=== PATIENT | male | born 1955 | race Hispanic/Latino ===

== ENCOUNTER 2018-07-26 14:35 | Emergency (ER) | payer MEDICARE ==
[2018-07-26 15:17] LABS: BASOPHILS % (AUTO) 0.5 % (0.0-5.0); EOSINOPHILS % (AUTO) 3.1 % (0.0-8.0); HEMATOCRIT 26.6 % (42-54); LYMPHOCYTES % (AUTO) 14.4 % (21.0-51.0); MEAN CORPUSCULAR HEMOGLOBIN 27.9 pg (27.0-33.0); MEAN CORPUSCULAR HGB CONC 32.8 g/dL (32.0-36.0); MEAN CORPUSCULAR VOLUME 85.2 fL (79-99); MONOCYTES % (AUTO) 11.1 % (3.0-13.0); NEUTROPHILS % (AUTO) 70.9 % (40.0-77.0); PLATELET COUNT (AUTO) 80 K/uL (130-400); RED BLOOD CELL COUNT(AUTO) 3.13 MIL/uL (4.50-6.20); RED CELL DISTRIBUTION WIDTH 16.7 % (11.0-15.5); WHITE BLOOD COUNT (AUTO) 4.3 K/uL (4.8-10.8)
[2018-07-26 15:27] LABS: CREATININE 1.2 mg/dL (0.5-1.5); INR 1.12 (0.85-1.15); PARTIAL THROMBOPLASTIN TIME 32.9 SEC (26.3-35.5); POTASSIUM 4.4 mmol/L (3.5-5.1); PROTHROMBIN TIME 11.7 SEC (9.6-11.6)
[2018-07-26 15:31] LABS: ALBUMIN 2.8 g/dL (3.5-5.0); BILIRUBIN,TOTAL 0.8 mg/dL (0.2-1.0); TOTAL PROTEIN, SERUM 7.1 g/dL (6.0-8.3)
== END 2018-07-26 16:37 | disposition home or self-care (01) ==
LOC: EDH 14:35
DX: R18.8 Other ascites (principal); D61.818 Other pancytopenia; K74.69 Other cirrhosis of liver; E11.9 Type 2 diabetes mellitus without complications; R78.5 Finding of other psychotropic drug in blood; I10 Essential (primary) hypertension; E07.9 Disorder of thyroid, unspecified; Z79.899 Other long term (current) drug therapy
CPT/HCPCS: 36415; 74176; 80053; 82150; 83690; 85025; 85610; 85730

== ENCOUNTER → 2018-07-27 | Outpatient (CLI) | payer MEDICARE ==
[~2018-07-27] MED LIST: LIDOCAINE HCL MPF 1% 5ML VIAL ONE
[2018-07-27 10:41] LABS: INR 1.11 (0.85-1.15); PROTHROMBIN TIME 11.6 SEC (9.6-11.6)
[2018-07-27] MEDS: ALBUMIN (HUMAN) 25% 200 ML IV SCH ×2 (13:06→14:41)
[2018-07-27 14:02] LABS: APPEARANCE BODY FLUID CLEAR (CLEAR); BODY FLUID WBC 197 /cu. mm.; COLOR,BODY FLUID YELLOW (LT YELLOW); SPECIMENTYPE,BODY FLUID ASCITES; TOTAL VOLUME,BODY FLUID 5600 mL
[2018-07-27 14:03] LABS: BODY FLUID RBC 332 /cu. mm.
[2018-07-27 14:07] LABS: BF LYMPHOCYTE 30 %; BF MESOTHELIAL 60 %; BF MONOCYTE 5 %
== END | disposition home or self-care (01) ==
LOC: RAH 09:30
PROVIDERS: ATTEND Internal Medicine Hematology & Oncology
DX: R18.8 Other ascites (principal); D64.9 Anemia, unspecified; K74.60 Unspecified cirrhosis of liver; E78.5 Hyperlipidemia, unspecified; E11.9 Type 2 diabetes mellitus without complications; I10 Essential (primary) hypertension; E03.9 Hypothyroidism, unspecified; N28.9 Disorder of kidney and ureter, unspecified; M86.9 Osteomyelitis, unspecified; Z98.890 Other specified postprocedural states; Z79.899 Other long term (current) drug therapy; Z79.84 Long term (current) use of oral hypoglycemic drugs; Z79.4 Long term (current) use of insulin; Z83.3 Family history of diabetes mellitus
CPT/HCPCS: 36415; 49083; 85610; 85730; 87071; 87205; 88108; 88305; 89051; J3490; P9047

== ENCOUNTER → 2018-08-27 | Outpatient (CLI) | payer MEDICARE | END | disposition home or self-care (01) | LOC: RAH 08:59 | PROVIDERS: ATTEND Internal Medicine | DX: K80.20 Calculus of gallbladder without cholecystitis without obstruction (principal); R16.2 Hepatomegaly with splenomegaly, not elsewhere classified; R18.8 Other ascites; I86.8 Varicose veins of other specified sites | CPT/HCPCS: 76700 ==

== ENCOUNTER 2018-09-24 13:54 | Emergency (ER) | payer MEDICARE ==
[2018-09-24 14:48] LABS: BASOPHILS % (AUTO) 0.7 % (0.0-5.0); EOSINOPHILS % (AUTO) 3.3 % (0.0-8.0); LYMPHOCYTES % (AUTO) 14.1 % (21.0-51.0); MEAN CORPUSCULAR HGB CONC 32.9 g/dL (32.0-36.0); MEAN CORPUSCULAR VOLUME 81.9 fL (79-99); MONOCYTES % (AUTO) 9.5 % (3.0-13.0); NEUTROPHILS % (AUTO) 72.4 % (40.0-77.0); PLATELET COUNT (AUTO) 141 K/uL (130-400); RED BLOOD CELL COUNT(AUTO) 3.06 MIL/uL (4.50-6.20); RED CELL DISTRIBUTION WIDTH 16.5 % (11.0-15.5); WHITE BLOOD COUNT (AUTO) 5.4 K/uL (4.8-10.8)
[2018-09-24 15:01] LABS: CREATININE 1.1 mg/dL (0.5-1.5)
[2018-09-24 15:03] LABS: INR 1.13 (0.85-1.15); PARTIAL THROMBOPLASTIN TIME 32.8 SEC (26.3-35.5); PROTHROMBIN TIME 11.8 SEC (9.6-11.6)
[2018-09-24 15:06] LABS: ALBUMIN 2.9 g/dL (3.5-5.0); BILIRUBIN,TOTAL 1.1 mg/dL (0.2-1.0); TOTAL PROTEIN, SERUM 7.5 g/dL (6.0-8.3)
== END 2018-09-24 15:55 | disposition home or self-care (01) ==
LOC: EDH 13:54
DX: R18.8 Other ascites (principal); D53.9 Nutritional anemia, unspecified; K74.60 Unspecified cirrhosis of liver; E07.9 Disorder of thyroid, unspecified; I10 Essential (primary) hypertension; E78.5 Hyperlipidemia, unspecified; E11.9 Type 2 diabetes mellitus without complications; Z79.4 Long term (current) use of insulin
CPT/HCPCS: 36415; 80053; 85025; 85610; 85730; 93005

== ENCOUNTER 2018-09-25 06:53 | Emergency (ER) | payer MEDICARE | END 2018-09-25 07:32 | disposition home or self-care (01) | LOC: EDH 06:53 | DX: R18.8 Other ascites (principal); E78.5 Hyperlipidemia, unspecified; I10 Essential (primary) hypertension; E11.9 Type 2 diabetes mellitus without complications; E07.9 Disorder of thyroid, unspecified; Z79.899 Other long term (current) drug therapy | CPT/HCPCS: 99281 ==

== ENCOUNTER → 2018-10-21 | Outpatient (CLI) | payer MEDICARE ==
[~2018-10-21] MED LIST changes: +LIDOCAINE HCL 1% 20 ML VIAL ONE; -LIDOCAINE HCL MPF 1% 5ML VIAL ONE
== END | disposition home or self-care (01) ==
LOC: RAH 07:50
PROVIDERS: ATTEND Internal Medicine
DX: K70.31 Alcoholic cirrhosis of liver with ascites (principal)
CPT/HCPCS: 49083; A4215

== ENCOUNTER → 2018-11-04 | Outpatient (CLI) | payer MEDICARE ==
[~2018-11-04] MED LIST changes: +ALBUMIN (HUMAN) 25% 200 ML IV SCH
[2018-11-04 08:13] LABS: BASOPHILS % (AUTO) 0.7 % (0.0-5.0); EOSINOPHILS % (AUTO) 2.5 % (0.0-8.0); HEMATOCRIT 28.5 % (42-54); MEAN CORPUSCULAR HEMOGLOBIN 26.1 pg (27.0-33.0); MEAN CORPUSCULAR HGB CONC 32.8 g/dL (32.0-36.0); MEAN CORPUSCULAR VOLUME 79.5 fL (79-99); MONOCYTES % (AUTO) 10.4 % (3.0-13.0); NEUTROPHILS % (AUTO) 73.4 % (40.0-77.0); PLATELET COUNT (AUTO) 113 K/uL (130-400); RED BLOOD CELL COUNT(AUTO) 3.59 MIL/uL (4.50-6.20); RED CELL DISTRIBUTION WIDTH 17.4 % (11.0-15.5); WHITE BLOOD COUNT (AUTO) 4.9 K/uL (4.8-10.8)
[2018-11-04 08:25] LABS: INR 1.13 (0.85-1.15); PROTHROMBIN TIME 11.8 SEC (9.6-11.6)
--- NOTE | 2018-11-04 11:00 | NUR ---
U/S GD PARACENTESIS PROCEDURE PERFORMED BY DR Mesfin SOOD. PUNCTURE SITE RLQ AND PATIENT TOLERATED PROCEDURE WELL. TOTAL REMOVED 10.5 LITERS OF CLOUDY YELLOW FLUID. ALBUMIN 25% 50 GRAMS IV GIVEN DURING PROCEDURE. SPECIMEN SENT TO LAB. END OF PROCEDURE AT 1030. CATHETER REMOVED AND DRESSING APPLIED. NO BLEEDING NOTED. DISCHARGE INSTRUCTIONS GIVEN TO PATIENT AND VERBALIZED UNDERSTANDING. DISCHARGED VIA AMBULATION AT 1100. AAO X3 WITH NO C/O PAIN.
[2018-11-04 17:31] LABS: SPECIMENTYPE,BODY FLUID ASCITES
[2018-11-04 17:32] LABS: APPEARANCE BODY FLUID SLIGHTLY CLOUDY (CLEAR); BODY FLUID RBC 345 /cu. mm.; BODY FLUID WBC 75 /cu. mm.; COLOR,BODY FLUID YELLOW (LT YELLOW); TOTAL VOLUME,BODY FLUID 10500 mL
[2018-11-04 17:41] LABS: BF LYMPHOCYTE 40 %; BF MESOTHELIAL 3 %; BF MONOCYTE 10 %
== END | disposition home or self-care (01) ==
LOC: RAH 07:34
PROVIDERS: ATTEND Internal Medicine
DX: K70.31 Alcoholic cirrhosis of liver with ascites (principal); Z79.01 Long term (current) use of anticoagulants
CPT/HCPCS: 36415; 49083; 85025; 85610; 87071; 87077; 87186; 87205; 89051; A4215; P9046

== ENCOUNTER → 2018-12-13 | Outpatient (CLI) | payer MEDICARE ==
[~2018-12-13] MED LIST changes: -LIDOCAINE HCL 1% 20 ML VIAL ONE
--- NOTE | 2018-12-13 11:30 | NUR ---
U/S GD PARACENTESIS PROCEDURE PERFORMED BY DR Mesfin SOOD. PUNCTURE SITE RLQ AND PATIENT TOLERATED PROCEDURE WELL. TOTAL REMOVED 10.5 LITERS OF CLOUDY YELLOW FLUID. ALBUMIN 25% 50 GRAMS IV GIVEN DURING PROCEDURE. SPECIMEN SENT TO LAB. END OF PROCEDURE AT 1055. CATHETER REMOVED AND DRESSING APPLIED. NO BLEEDING NOTED. DISCHARGE INSTRUCTIONS GIVEN TO PATIENT AND VERBALIZED UNDERSTANDING. DISCHARGED VIA AMBULATION AT 1130. AAO X3 WITH NO C/O PAIN.
[2018-12-13 12:40] LABS: APPEARANCE BODY FLUID SLIGHTLY CLOUDY (CLEAR); COLOR,BODY FLUID LT YELLOW (LT YELLOW); SPECIMENTYPE,BODY FLUID ASCITES; TOTAL VOLUME,BODY FLUID 10500 mL
[2018-12-13 12:41] LABS: BODY FLUID RBC 137 /cu. mm.; BODY FLUID WBC 128 /cu. mm.
[2018-12-13 13:38] LABS: BF LYMPHOCYTE 27 %; BF MESOTHELIAL 56 %
== END | disposition home or self-care (01) ==
LOC: RAH 09:40
PROVIDERS: ATTEND Internal Medicine Hematology & Oncology
DX: K70.31 Alcoholic cirrhosis of liver with ascites (principal)
CPT/HCPCS: 49083; 87071; 87205; 89051; 96365; A4215; P9046

== ENCOUNTER → 2018-12-28 | Outpatient (CLI) | payer MEDICARE ==
[~2018-12-28] MED LIST changes: +ALBUMIN (HUMAN) 25% 100 ML IV ONE; -ALBUMIN (HUMAN) 25% 200 ML IV SCH; +LIDOCAINE HCL 1% 20 ML VIAL ONE
[2018-12-28 08:44] LABS: INR 1.12 (0.85-1.15); PROTHROMBIN TIME 11.7 SEC (9.6-11.6)
--- NOTE | 2018-12-28 10:02 | NUR ---
ALBUMIN PROTOCOL TOTAL REMOVED 12.2 LITERS OF CLOUDY YELLOW FLUID. PATIENT MET CRITERIA AND ALBUMIN 25% 50 GRAMS IV GIVEN POST PARACENTESIS.
== END | disposition home or self-care (01) ==
LOC: RAH 07:11
PROVIDERS: ATTEND Internal Medicine Hematology & Oncology
DX: K70.31 Alcoholic cirrhosis of liver with ascites (principal)
CPT/HCPCS: 36415; 49083; 82140; 85610; A4215; P9046 ×2

== ENCOUNTER → 2019-01-11 | Outpatient (CLI) | payer MEDICARE ==
[~2019-01-11] MED LIST changes: -ALBUMIN (HUMAN) 25% 100 ML IV ONE; +ALBUMIN (HUMAN) 25% 200 ML IV SCH; -LIDOCAINE HCL 1% 20 ML VIAL ONE
[2019-01-11 09:52] LABS: INR 1.14 (0.85-1.15); PARTIAL THROMBOPLASTIN TIME 32.8 SEC (26.3-35.5); PROTHROMBIN TIME 11.9 SEC (9.6-11.6)
--- NOTE | 2019-01-11 10:10 | NUR ---
U/S GD PARACENTESIS PROCEDURE PERFORMED BY DR CARTER. PUNCTURE SITE RIGHT SIDE ABDOMEN AND PATIENT TOLERATED PROCEDURE WELL. TOTAL REMOVED 10.0 LITERS OF CLOUDY YELLOW FLUID. END OF PROCEDURE AT 1040. CATHETER REMOVED AND DRESSING APPLIED. NO BLEEDING NOTED. SPECIMEN SENT TO LAB. ALBUMIN 25 % 50 GRAMS GIVEN IV PER MD ORDERS. DISCHARGE INSTRUCTIONS GIVEN TO PATIENT AND VERBALIZED UNDERSTANDING. DISCHARGED AMBULATORY, STABLE, AAO X3 WITH NO C/O PAIN.
[2019-01-11 17:50] LABS: SPECIMENTYPE,BODY FLUID ASCITES
[2019-01-11 17:51] LABS: APPEARANCE BODY FLUID SLIGHTLY CLOUDY (CLEAR); COLOR,BODY FLUID YELLOW (LT YELLOW)
[2019-01-11 17:53] LABS: BODY FLUID RBC 100 /cu. mm.; BODY FLUID WBC 93 /cu. mm.
[2019-01-11 17:56] LABS: TOTAL VOLUME,BODY FLUID 10000 mL
[2019-01-11 18:08] LABS: BF LYMPHOCYTE 14 %; BF MONOCYTE 30 %
== END | disposition home or self-care (01) ==
LOC: RAH 08:57
PROVIDERS: ATTEND Internal Medicine Hematology & Oncology
DX: K70.31 Alcoholic cirrhosis of liver with ascites (principal); Z79.899 Other long term (current) drug therapy; Z83.3 Family history of diabetes mellitus; I50.9 Heart failure, unspecified; E11.9 Type 2 diabetes mellitus without complications; I10 Essential (primary) hypertension; I25.10 Atherosclerotic heart disease of native coronary artery without angina pectoris; K21.9 Gastro-esophageal reflux disease without esophagitis; M86.9 Osteomyelitis, unspecified; Z98.890 Other specified postprocedural states; Z79.4 Long term (current) use of insulin; Z79.84 Long term (current) use of oral hypoglycemic drugs
CPT/HCPCS: 36415; 49083; 85610; 85730; 87071; 87205; 89051; 96365; A4215; P9046

== ENCOUNTER 2019-01-20 11:53 | Emergency (ER) | payer MEDICARE ==
[2019-01-20 12:28] LABS: BASOPHILS % (AUTO) 0.1 % (0.0-5.0); EOSINOPHILS % (AUTO) 1.8 % (0.0-8.0); HEMATOCRIT 29.9 % (42-54); LYMPHOCYTES % (AUTO) 12.8 % (21.0-51.0); MEAN CORPUSCULAR HEMOGLOBIN 23.7 pg (27.0-33.0); MONOCYTES % (AUTO) 8.5 % (3.0-13.0); NEUTROPHILS % (AUTO) 76.8 % (40.0-77.0); PLATELET COUNT (AUTO) 126 K/uL (130-400); RED BLOOD CELL COUNT(AUTO) 4.03 MIL/uL (4.50-6.20); RED CELL DISTRIBUTION WIDTH 20.9 % (11.0-15.5)
[2019-01-20 12:37] LABS: POTASSIUM 4.6 mmol/L (3.5-5.1)
[2019-01-20 12:42] LABS: ALBUMIN 3.1 g/dL (3.5-5.0); BILIRUBIN,TOTAL 1.9 mg/dL (0.2-1.0); TOTAL PROTEIN, SERUM 7.4 g/dL (6.0-8.3)
[2019-01-20 13:08] LABS: AMMONIA 28 umol/L (11-32); AMYLASE 61 U/L (25-115); LIPASE 254 U/L (114-286)
[2019-01-20 13:18] LABS: INR 1.05 (0.85-1.15); PARTIAL THROMBOPLASTIN TIME 28.6 SEC (26.3-35.5)
[2019-01-20 13:29] LABS: APPEARANCE,URINE Clear (CLEAR); BILIRUBIN,URINE Negative (NEGATIVE); COLOR,URINE Yellow (YELLOW); GLUCOSE, URINE (UA) Negative (NEGATIVE); KETONES,URINE Negative (NEGATIVE); LEUKOCYTE ESTERASE ,URINE Negative (NEGATIVE); NITRATE,URINE Negative (NEGATIVE); OCCULT BLOOD,URINE Negative (NEGATIVE); PROTEIN,URINE Negative (NEGATIVE)
[2019-01-20] MEDS ORDERED: LIDOCAINE HCL 1% 20 ML VIAL ONE (14:38)
[2019-01-20] MEDS ORDERED: ALBUMIN (HUMAN) 25% 200 ML IV ONE (14:39)
--- NOTE | 2019-01-20 15:31 | NUR ---
U/S GD PARACENTESIS PROCEDURE PERFORMED BY DR Mesfin SOOD. PUNCTURE SITE RLQ AND PATIENT TOLERATED PROCEDURE WELL. TOTAL REMOVED 10.8 LITERS OF CLEAR YELLOW FLUID. END OF PROCEDURE AT 1510. CATHETER REMOVED AND DRESSING APPLIED. NO BLEEDING NOTED. REPORT GIVEN TO BLAIRE MYERS AND PATIENT TRANSPORTED TO [facility] VIA STRETCHER AT 1515. AAO X3 WITH NO C/O PAIN. ALBUMIN 25% 50 GRAMS GIVEN PER PROTOCOL.
== END 2019-01-20 16:52 | disposition home or self-care (01) ==
LOC: EDH 11:53
DX: R18.8 Other ascites (principal); R06.00 Dyspnea, unspecified; E11.9 Type 2 diabetes mellitus without complications; E78.5 Hyperlipidemia, unspecified; I10 Essential (primary) hypertension; E07.9 Disorder of thyroid, unspecified
CPT/HCPCS: 36415; 49083; 71045; 80053; 81003; 82140; 82150; 83690; 85025; 85610; 85730; 96365; 99285; A4215; P9046

== ENCOUNTER → 2019-02-02 | Outpatient (CLI) | payer MEDICARE ==
[~2019-02-02] MED LIST changes: +ALBUMIN (HUMAN) 25% 200 ML IV ONE; -ALBUMIN (HUMAN) 25% 200 ML IV SCH; +LIDOCAINE HCL 1% 20 ML VIAL ONE
[2019-02-02 14:52] LABS: INR 1.09 (0.85-1.15); PARTIAL THROMBOPLASTIN TIME 32.7 SEC (26.3-35.5); PROTHROMBIN TIME 11.4 SEC (9.6-11.6)
--- NOTE | 2019-02-02 16:15 | NUR ---
U/S GD PARACENTESIS PROCEDURE PERFORMED BY DR Melani OLIVER. PUNCTURE SITE LLQ AND PATIENT TOLERATED PROCEDURE WELL. TOTAL REMOVED 9.9 LITERS OF CLOUDY YELLOW FLUID. ALBUMIN 25% 50 GRAMS IV GIVEN DURING PROCEDURE. END OF PROCEDURE AT 1545. CATHETER REMOVED AND DRESSING APPLIED. NO BLEEDING NOTED. DISCHARGE INSTRUCTIONS GIVEN TO PATIENT AND VERBALIZED UNDERSTANDING. DISCHARGED VIA AMBULATION AT 1615. AAO X3 WITH NO C/O PAIN.
== END | disposition home or self-care (01) ==
LOC: RAH 14:00
PROVIDERS: ATTEND Internal Medicine Hematology & Oncology
DX: K70.31 Alcoholic cirrhosis of liver with ascites (principal); I25.10 Atherosclerotic heart disease of native coronary artery without angina pectoris; I10 Essential (primary) hypertension; M19.90 Unspecified osteoarthritis, unspecified site; Z98.890 Other specified postprocedural states; Z79.899 Other long term (current) drug therapy; D64.9 Anemia, unspecified
CPT/HCPCS: 36415; 49083; 85610; 85730; 96365; A4215; P9046

== ENCOUNTER → 2019-02-14 | Outpatient (CLI) | payer MEDICARE ==
[~2019-02-14] VITALS: Ht 165.1 cm; Wt 108.9 kg
--- NOTE | 2019-02-14 12:30 | NUR ---
U/S GD PARACENTESIS PROCEDURE PERFORMED BY DR Melani OLIVER. PUNCTURE SITE RLQ AND PATIENT TOLERATED PROCEDURE WELL. TOTAL REMOVED 9.8 LITERS OF CLOUDY YELLOW FLUID. END OF PROCEDURE AT 1200. CATHETER REMOVED AND DRESSING APPLIED. NO BLEEDING NOTED. ALBUMIN 25 % 50 GRAMS GIVEN IV PER PROTOCOL. . DISCHARGE INSTRUCTIONS GIVEN TO PATIENT AND VERBALIZED UNDERSTANDING. DISCHARGED VIA W/C AT 1230. AAO X3 WITH NO C/O PAIN.
== END | disposition home or self-care (01) ==
LOC: RAH 11:01
PROVIDERS: ATTEND Internal Medicine Hematology & Oncology
DX: K70.31 Alcoholic cirrhosis of liver with ascites (principal)
CPT/HCPCS: 49083; 96365; A4215; P9046

== ENCOUNTER → 2019-02-22 | Outpatient (CLI) | payer MEDICARE ==
[~2019-02-22] VITALS: Ht 165.1 cm; Wt 108.9 kg
[~2019-02-22] MED LIST changes: -ALBUMIN (HUMAN) 25% 200 ML IV ONE; +ALBUMIN (HUMAN) 25% 200 ML IV SCH
[2019-02-22 13:17] LABS: INR 1.11 (0.85-1.15); PARTIAL THROMBOPLASTIN TIME 32.7 SEC (26.3-35.5); PROTHROMBIN TIME 11.6 SEC (9.6-11.6)
--- NOTE | 2019-02-22 15:15 | NUR ---
U/S GD PARACENTESIS PROCEDURE PERFORMED BY DR Maxim WILLIS. PUNCTURE SITE RLQ AND PATIENT TOLERATED PROCEDURE WELL. TOTAL REMOVED 10 LITERS OF CLOUDY YELLOW FLUID. ALBUMIN 25% 50 GRAMS IV GIVEN DURING PROCEDURE. END OF PROCEDURE AT 1445. CATHETER REMOVED AND DRESSING APPLIED. NO BLEEDING NOTED. DISCHARGE INSTRUCTIONS GIVEN TO PATIENT AND VERBALIZED UNDERSTANDING. DISCHARGED VIA W/C AT 1515. AAO X3 WITH NO C/O PAIN.
== END | disposition home or self-care (01) ==
LOC: RAH 12:32
PROVIDERS: ATTEND Internal Medicine Hematology & Oncology
DX: K70.31 Alcoholic cirrhosis of liver with ascites (principal); D50.9 Iron deficiency anemia, unspecified
CPT/HCPCS: 36415; 49083; 85610; 85730; 96365; A4215; P9046

== ENCOUNTER → 2019-03-02 | Outpatient (CLI) | payer MEDICARE ==
--- NOTE | 2019-03-02 11:05 | NUR ---
US GUIDED PARACENTESIS PROCEDURE PERFORMED BY DR. CARTER. PUNCTURE SITE RIGHT SIDE ABDOMEN. PATIENT TOLERATED PROCEDURE WELL. TOTAL REMOVED 8.2 LITERS OF CLOUDY YELLOW FLUID. END OF PROCEDURE 1140. CATHETER REMOVED, DRESSING APPLIED. NO BLEEDING NOTED. ALBUMIN 25% 50 GRAMS GIVEN PIV RIGHT WRIST. PT TOLERATED WELL. DISCHARGE INSTRUCTIONS GIVEN TO PATIENT AND VERBALIZED UNDERSTANDING. D/C'D PIV, BANDAID APPLIED. DISCHARGED AMBULATORY @ 1155. AAO X 3. WITH NO C/O PAIN.
[2019-03-02 12:39] LABS: APPEARANCE BODY FLUID CLEAR (CLEAR); COLOR,BODY FLUID YELLOW (LT YELLOW); SPECIMENTYPE,BODY FLUID ASCITES; TOTAL VOLUME,BODY FLUID 8200 mL
[2019-03-02 12:40] LABS: BODY FLUID RBC 274 /cu. mm.; BODY FLUID WBC 225 /cu. mm.
[2019-03-02 12:46] LABS: BF LYMPHOCYTE 13 %; BF MESOTHELIAL 75 %; BF MONOCYTE 7 %
== END | disposition home or self-care (01) ==
LOC: RAH 09:18
PROVIDERS: ATTEND Internal Medicine Hematology & Oncology
DX: K70.31 Alcoholic cirrhosis of liver with ascites (principal); D50.9 Iron deficiency anemia, unspecified
CPT/HCPCS: 49083; 87071; 87205; 89051; 96365; A4215; P9046

== ENCOUNTER → 2019-03-09 | Outpatient (CLI) | payer MEDICARE ==
[~2019-03-09] MED LIST changes: +ALBUMIN (HUMAN) 25% 200 ML IV ONE; -ALBUMIN (HUMAN) 25% 200 ML IV SCH; -LIDOCAINE HCL 1% 20 ML VIAL ONE
--- NOTE | 2019-03-09 10:45 | NUR ---
US GUIDED PARACENTESIS PROCEDURE PERFORMED BY DR. CARTER. PUNCTURE SITE RIGHT LOWER QUADRANT. PATIENT TOLERATED PROCEDURE WELL. TOTAL REMOVED 6.0 LITERS OF CLOUDY YELLOW FLUID. END OF PROCEDURE 1115. CATHETER REMOVED, DRESSING APPLIED. NO BLEEDING NOTED. ALBUMIN 25% 50 GRAMS GIVEN PIV LEFT FOREARM. PT TOLERATED WELL. DISCHARGE INSTRUCTIONS GIVEN TO PATIENT AND VERBALIZED UNDERSTANDING. D/C'D PIV, BANDAID APPLIED. DISCHARGED AMBULATORY @ 1145. AAO X 3. WITH NO C/O PAIN.
[2019-03-09 13:16] LABS: SPECIMENTYPE,BODY FLUID ASCITES
[2019-03-09 13:17] LABS: APPEARANCE BODY FLUID CLEAR (CLEAR); BODY FLUID WBC 208 /cu. mm.; COLOR,BODY FLUID YELLOW (LT YELLOW); TOTAL VOLUME,BODY FLUID 6000 mL
[2019-03-09 13:18] LABS: BODY FLUID RBC 272 /cu. mm.
[2019-03-09 13:24] LABS: BF LYMPHOCYTE 20 %; BF MESOTHELIAL 70 %
== END | disposition home or self-care (01) ==
LOC: RAH 09:32
PROVIDERS: ATTEND Internal Medicine Hematology & Oncology
DX: K70.31 Alcoholic cirrhosis of liver with ascites (principal); M19.90 Unspecified osteoarthritis, unspecified site; K21.9 Gastro-esophageal reflux disease without esophagitis; E11.9 Type 2 diabetes mellitus without complications; E78.5 Hyperlipidemia, unspecified; D64.9 Anemia, unspecified; E03.9 Hypothyroidism, unspecified; I12.9 Hypertensive chronic kidney disease with stage 1 through stage 4 chronic kidney disease, or unspecified chronic kidney disease; E11.22 Type 2 diabetes mellitus with diabetic chronic kidney disease; N18.3 Chronic kidney disease, stage 3 (moderate); Z83.3 Family history of diabetes mellitus
CPT/HCPCS: 49083; 87071; 87205; 89051; 96365; A4215; P9046

== ENCOUNTER → 2019-03-16 | Outpatient (CLI) | payer MEDICARE ==
[~2019-03-16] MED LIST changes: -ALBUMIN (HUMAN) 25% 200 ML IV ONE; +ALBUMIN (HUMAN) 25% 200 ML IV SCH
[2019-03-16 09:57] LABS: INR 1.1 (0.85-1.15); PARTIAL THROMBOPLASTIN TIME 32.7 SEC (26.3-35.5); PROTHROMBIN TIME 11.5 SEC (9.6-11.6)
--- NOTE | 2019-03-16 10:40 | NUR ---
U/S GD PARACENTESIS PROCEDURE PERFORMED BY DR WILLIS. PUNCTURE SITE LLQ AND PATIENT TOLERATED PROCEDURE WELL. TOTAL REMOVED 7.5 LITERS OF CLOUDY YELLOW FLUID. END OF PROCEDURE AT 0925. CATHETER REMOVED AND DRESSING APPLIED. NO BLEEDING NOTED. SPECIMEN SENT TO LAB. ALBUMIN 25 % 50 GRAMS GIVEN IV PER MD ORDERS. DISCHARGE INSTRUCTIONS GIVEN TO PATIENT AND VERBALIZED UNDERSTANDING. DISCHARGED AMBULATORY, STABLE, AAO X3 WITH NO C/O PAIN. Addendum: 03/16/19 at 1133 by HUYEN NATION RN RN U/S GD PARACENTESIS PROCEDURE PERFORMED BY DR WILLIS. PUNCTURE SITE LLQ AND PATIENT TOLERATED PROCEDURE WELL. TOTAL REMOVED 7.5 LITERS OF CLOUDY YELLOW FLUID. END OF PROCEDURE AT 1110. CATHETER REMOVED AND DRESSING APPLIED. NO BLEEDING NOTED. SPECIMEN SENT TO LAB. ALBUMIN 25 % 50 GRAMS GIVEN IV PER MD ORDERS. DISCHARGE INSTRUCTIONS GIVEN TO PATIENT AND VERBALIZED UNDERSTANDING. DISCHARGED AMBULATORY @ 1135, STABLE, AAO X3 WITH NO C/O PAIN.
[2019-03-16 12:48] LABS: APPEARANCE BODY FLUID CLEAR (CLEAR); COLOR,BODY FLUID YELLOW (LT YELLOW); SPECIMENTYPE,BODY FLUID ASCITES
[2019-03-16 12:49] LABS: BODY FLUID RBC 517 /cu. mm.; BODY FLUID WBC 150 /cu. mm.; TOTAL VOLUME,BODY FLUID 7500 mL
[2019-03-16 13:11] LABS: BF LYMPHOCYTE 12 %; BF MESOTHELIAL 75 %; BF MONOCYTE 3 %
== END | disposition home or self-care (01) ==
LOC: RAH 08:45
PROVIDERS: ATTEND Internal Medicine Hematology & Oncology
DX: K70.31 Alcoholic cirrhosis of liver with ascites (principal)
CPT/HCPCS: 36415; 49083; 85610; 85730; 87071; 87205; 89051; 96365; A4215; P9046

== ENCOUNTER → 2019-03-23 | Outpatient (CLI) | payer MEDICARE ==
--- NOTE | 2019-03-23 11:30 | NUR ---
U/S GD PARACENTESIS PROCEDURE PERFORMED BY DR Hany CARTER. PUNCTURE SITE RLQ AND PATIENT TOLERATED PROCEDURE WELL. TOTAL REMOVED 6.7 LITERS OF CLOUDY YELLOW FLUID. ALBUMIN 25% 50 GRAMS IV GIVEN DURING PROCEDURE. END OF PROCEDURE AT 1100. CATHETER REMOVED AND DRESSING APPLIED. NO BLEEDING NOTED. DISCHARGE INSTRUCTIONS GIVEN TO PATIENT AND VERBALIZED UNDERSTANDING. DISCHARGED VIA AMBULATION AT 1130. AAO X3 WITH NO C/O PAIN.
== END | disposition home or self-care (01) ==
LOC: RAH 08:58
PROVIDERS: ATTEND Internal Medicine Hematology & Oncology
DX: K70.31 Alcoholic cirrhosis of liver with ascites (principal)
CPT/HCPCS: 49083; 96365; A4215; P9046

== ENCOUNTER → 2019-03-30 | Outpatient (CLI) | payer MEDICARE ==
[2019-03-30 10:20] LABS: INR 1.09 (0.85-1.15); PARTIAL THROMBOPLASTIN TIME 33.3 SEC (26.3-35.5); PROTHROMBIN TIME 11.4 SEC (9.6-11.6)
--- NOTE | 2019-03-30 10:50 | NUR ---
US GUIDED PARACENTESIS PROCEDURE PERFORMED BY DR. CARTER. PUNCTURE SITE TO THE RIGHT LOWER QUADRANT. PROCEDURE TOLERATED WELL. 7.0 LITERS OF CLOUDY YELLOW COLORED FLUID REMOVED. END OF PROCEDURE AT 1110. CATHETER REMOVED AND DRESSING APPLIED. NO BLEEDING NOTED. ALBUMIN 25% 50 GRAMS IV GIVEN PER PROTOCOL. PATIENT TOLERATED WELL. DISCHARGE INSTRUCTIONS GIVEN TO PATIENT. PT VERBALIZED UNDERSTANDING. PT STABLE, AAO X3. NO C/O PAIN.
[2019-03-30 13:05] LABS: APPEARANCE BODY FLUID CLEAR (CLEAR); BODY FLUID WBC 182 /cu. mm.; COLOR,BODY FLUID YELLOW (LT YELLOW); SPECIMENTYPE,BODY FLUID ASCITES; TOTAL VOLUME,BODY FLUID 7000 mL
[2019-03-30 13:06] LABS: BODY FLUID RBC 292 /cu. mm.
[2019-03-30 13:34] LABS: BF EOSINOPHIL 1 %; BF LYMPHOCYTE 16 %; BF MESOTHELIAL 77 %; BF MONOCYTE 4 %
== END | disposition home or self-care (01) ==
LOC: RAH 09:17
PROVIDERS: ATTEND Internal Medicine Hematology & Oncology
DX: K70.31 Alcoholic cirrhosis of liver with ascites (principal)
CPT/HCPCS: 36415; 49083; 85610; 85730; 87071; 87205; 89051; 96365; A4215; P9046

== ENCOUNTER → 2019-04-05 | Outpatient (CLI) | payer MEDICARE ==
[~2019-04-05] VITALS: Ht 165.1 cm; Wt 108.9 kg
[~2019-04-05] MED LIST changes: +ALBUMIN (HUMAN) 25% 100 ML IV SCH; -ALBUMIN (HUMAN) 25% 200 ML IV SCH
[2019-04-05 09:04] LABS: INR 1.09 (0.85-1.15); PARTIAL THROMBOPLASTIN TIME 33.9 SEC (26.3-35.5); PROTHROMBIN TIME 11.4 SEC (9.6-11.6)
--- NOTE | 2019-04-05 09:40 | NUR ---
US GUIDED PARACENTESIS PROCEDURE PERFORMED BY DR. WILLIS. PUNCTURE SITE TO THE LEFT LOWER QUADRANT. PROCEDURE TOLERATED WELL. 6.5 LITERS OF CLOUDY YELLOW COLORED FLUID REMOVED. END OF PROCEDURE AT 1005. CATHETER REMOVED AND DRESSING APPLIED. NO BLEEDING NOTED. ALBUMIN 25% 25 GRAMS IV GIVEN PER PROTOCOL. PATIENT TOLERATED WELL. DISCHARGE INSTRUCTIONS GIVEN TO PATIENT. PT VERBALIZED UNDERSTANDING. PT STABLE, AAO X3. NO C/O PAIN.
[2019-04-05 13:09] LABS: APPEARANCE BODY FLUID CLEAR (CLEAR); COLOR,BODY FLUID YELLOW (LT YELLOW); SPECIMENTYPE,BODY FLUID ASCITES
[2019-04-05 13:11] LABS: BODY FLUID WBC 184 /cu. mm.
[2019-04-05 13:13] LABS: BODY FLUID RBC 298 /cu. mm.
[2019-04-05 13:20] LABS: BF LYMPHOCYTE 19 %; BF MESOTHELIAL 58 %; BF MONOCYTE 11 %
[2019-04-05 13:24] LABS: TOTAL VOLUME,BODY FLUID 6500 mL
== END ==
LOC: RAH 08:27
PROVIDERS: ATTEND Internal Medicine Hematology & Oncology
DX: K70.31 Alcoholic cirrhosis of liver with ascites (principal); D50.9 Iron deficiency anemia, unspecified; Z79.01 Long term (current) use of anticoagulants
CPT/HCPCS: 36415; 49083; 85610; 85730; 87071; 87205; 89051; 96365; A4215; P9046

== ENCOUNTER → 2019-04-13 | Outpatient (CLI) | payer MEDICARE ==
[~2019-04-13] VITALS: Ht 165.1 cm; Wt 108.9 kg
[~2019-04-13] MED LIST changes: -ALBUMIN (HUMAN) 25% 100 ML IV SCH; +ALBUMIN (HUMAN) 25% 200 ML IV PRN
--- NOTE | 2019-04-13 11:10 | NUR ---
US GUIDED PARACENTESIS PROCEDURE PERFORMED BY DR. OLIVER. PUNCTURE SITE TO THE RIGHT LOWER QUADRANT. PROCEDURE TOLERATED WELL. 8.5 LITERS OF CLOUDY YELLOW COLORED FLUID REMOVED. END OF PROCEDURE AT 1140. CATHETER REMOVED AND DRESSING APPLIED. NO BLEEDING NOTED. ALBUMIN 25% 50 GRAMS IV GIVEN PER PROTOCOL. PATIENT TOLERATED WELL. DISCHARGE INSTRUCTIONS GIVEN TO PATIENT. PT VERBALIZED UNDERSTANDING. PT STABLE, AAO X3. NO C/O PAIN.
[2019-04-13 12:40] LABS: APPEARANCE BODY FLUID CLEAR (CLEAR); COLOR,BODY FLUID YELLOW (LT YELLOW); SPECIMENTYPE,BODY FLUID ASCITES; TOTAL VOLUME,BODY FLUID 8500 mL
[2019-04-13 12:41] LABS: BODY FLUID WBC 124 /cu. mm.
[2019-04-13 12:44] LABS: BODY FLUID RBC 212 /cu. mm.
[2019-04-13 13:01] LABS: BF LYMPHOCYTE 22 %; BF MESOTHELIAL 56 %; BF MONOCYTE 8 %
== END | disposition home or self-care (01) ==
LOC: RAH 08:25
PROVIDERS: ATTEND Internal Medicine Hematology & Oncology
DX: K70.31 Alcoholic cirrhosis of liver with ascites (principal)
CPT/HCPCS: 49083; 87071; 87205; 89051; 96365; A4215

== ENCOUNTER → 2019-04-20 | Outpatient (CLI) | payer MEDICARE ==
--- NOTE | 2019-04-20 10:00 | NUR ---
US GUIDED PARACENTESIS PROCEDURE PERFORMED BY DR. OLIVER. PUNCTURE SITE TO THE RIGHT LOWER QUADRANT. PROCEDURE TOLERATED WELL. 8.5 LITERS OF CLOUDY YELLOW COLORED FLUID REMOVED. END OF PROCEDURE AT 1040. CATHETER REMOVED AND DRESSING APPLIED. NO BLEEDING NOTED. ALBUMIN 25% 50 GRAMS IV GIVEN PER PROTOCOL. PATIENT TOLERATED WELL. DISCHARGE INSTRUCTIONS GIVEN TO PATIENT. PT VERBALIZED UNDERSTANDING. PT STABLE, AAO X3. NO C/O PAIN.
[2019-04-20 13:06] LABS: SPECIMENTYPE,BODY FLUID ASCITES
[2019-04-20 13:07] LABS: APPEARANCE BODY FLUID CLEAR (CLEAR); COLOR,BODY FLUID YELLOW (LT YELLOW)
[2019-04-20 13:08] LABS: BODY FLUID RBC 443 /cu. mm.; BODY FLUID WBC 137 /cu. mm.; TOTAL VOLUME,BODY FLUID 8500 mL
[2019-04-20 13:15] LABS: BF EOSINOPHIL 1 %; BF LYMPHOCYTE 10 %; BF MESOTHELIAL 81 %; BF MONOCYTE 6 %
== END | disposition home or self-care (01) ==
LOC: RAH 08:37
PROVIDERS: ATTEND Internal Medicine Hematology & Oncology
DX: K70.31 Alcoholic cirrhosis of liver with ascites (principal); D50.9 Iron deficiency anemia, unspecified
CPT/HCPCS: 49083; 87071; 87205; 89051; 96365; A4215

== ENCOUNTER → 2019-04-27 | Outpatient (CLI) | payer MEDICARE ==
[~2019-04-27] MED LIST changes: -ALBUMIN (HUMAN) 25% 200 ML IV PRN; +ALBUMIN (HUMAN) 25% 200 ML IV SCH
--- NOTE | 2019-04-27 13:20 | NUR ---
US GUIDED PARACENTESIS PROCEDURE PERFORMED BY DR. CARTER. PUNCTURE SITE TO THE RIGHT LOWER QUADRANT. PROCEDURE TOLERATED WELL. 10.0 LITERS OF CLOUDY YELLOW COLORED ASCITES FLUID REMOVED. END OF PROCEDURE AT 1355. CATHETER REMOVED AND DRESSING APPLIED. NO BLEEDING NOTED. ALBUMIN 25% 50 GRAMS GIVEN IV. PATIENT TOLERATED WELL. DISCHARGE INSTRUCTIONS GIVEN TO PATIENT. PT VERBALIZED UNDERSTANDING. PT STABLE, AAO X3. NO C/O PAIN.
[2019-04-27 17:32] LABS: APPEARANCE BODY FLUID SLIGHTLY CLOUDY (CLEAR); COLOR,BODY FLUID YELLOW (LT YELLOW); SPECIMENTYPE,BODY FLUID ASCITES; TOTAL VOLUME,BODY FLUID 10000 mL
[2019-04-27 17:33] LABS: BODY FLUID RBC 180 /cu. mm.; BODY FLUID WBC 72 /cu. mm.
[2019-04-27 17:56] LABS: BF LYMPHOCYTE 38 %; BF MESOTHELIAL 6 %
== END ==
LOC: RAH 11:00
PROVIDERS: ATTEND Internal Medicine Hematology & Oncology
DX: K70.31 Alcoholic cirrhosis of liver with ascites (principal); D50.9 Iron deficiency anemia, unspecified
CPT/HCPCS: 49083; 87071; 87205; 89051; 96365; A4215; P9046; 87077; 87186

== ENCOUNTER → 2019-05-03 | Outpatient (CLI) | payer MEDICARE ==
[~2019-05-03] VITALS: Ht 165.1 cm; Wt 108.9 kg
--- NOTE | 2019-05-03 10:00 | NUR ---
US GUIDED PARACENTESIS PROCEDURE PERFORMED BY DR. GARCIA. PUNCTURE SITE TO THE RIGHT UPPER QUADRANT. PROCEDURE TOLERATED WELL. 8.6 LITERS OF CLOUDY YELLOW COLORED ASCITES FLUID REMOVED. END OF PROCEDURE AT 1055. CATHETER REMOVED AND DRESSING APPLIED. NO BLEEDING NOTED. ALBUMIN 25% 50 GRAMS GIVEN IV. PATIENT TOLERATED WELL. DISCHARGE INSTRUCTIONS GIVEN TO PATIENT. PT VERBALIZED UNDERSTANDING. PT STABLE, AAO X3. NO C/O PAIN.
[2019-05-03 19:16] LABS: APPEARANCE BODY FLUID CLEAR (CLEAR); COLOR,BODY FLUID LT YELLOW (LT YELLOW); SPECIMENTYPE,BODY FLUID ASCITES; TOTAL VOLUME,BODY FLUID 8600 mL
[2019-05-03 19:17] LABS: BODY FLUID RBC 150 /cu. mm.; BODY FLUID WBC 117 /cu. mm.
[2019-05-03 19:37] LABS: BF LYMPHOCYTE 24 %; BF MESOTHELIAL 60 %
== END | disposition home or self-care (01) ==
LOC: RAH 09:16
PROVIDERS: ATTEND Internal Medicine Hematology & Oncology
DX: K70.31 Alcoholic cirrhosis of liver with ascites (principal)
CPT/HCPCS: 49083; 87071; 87205; 89051; 96365; A4215; P9046

== ENCOUNTER → 2019-05-10 | Outpatient (CLI) | payer MEDICARE ==
--- NOTE | 2019-05-10 10:40 | NUR ---
U/S GD PARACENTESIS PROCEDURE PERFORMED BY DR WILLIS. PUNCTURE SITE LEFT UPPER QUADRANT AND PATIENT TOLERATED PROCEDURE WELL. TOTAL REMOVED 8.0 LITERS OF CLOUDY YELLOW. SPECIMEN SENT TO LAB. END OF PROCEDURE AT 1125. CATHETER REMOVED AND DRESSING APPLIED. ALBUMIN 25% 50 GRAMS GIVEN IV PER PROTOCOL NO BLEEDING NOTED. DISCHARGE INSTRUCTIONS GIVEN TO PATIENT AND VERBALIZED UNDERSTANDING. DISCHARGED VIA AMBULATION AT 1045. STABLE, AAO X3 WITH NO C/O PAIN.
[2019-05-10 13:42] LABS: APPEARANCE BODY FLUID CLOUDY (CLEAR); COLOR,BODY FLUID YELLOW (LT YELLOW); SPECIMENTYPE,BODY FLUID ASCITES; TOTAL VOLUME,BODY FLUID 8000 mL
[2019-05-10 13:43] LABS: BODY FLUID RBC 2000 /cu. mm.; BODY FLUID WBC 142 /cu. mm.
[2019-05-10 13:47] LABS: BF LYMPHOCYTE 16 %; BF MESOTHELIAL 63 %
== END | disposition home or self-care (01) ==
LOC: RAH 08:56
PROVIDERS: ATTEND Internal Medicine Hematology & Oncology
DX: R18.8 Other ascites (principal); D50.9 Iron deficiency anemia, unspecified; K70.31 Alcoholic cirrhosis of liver with ascites
CPT/HCPCS: 49083; 87071; 87205; 89051; 96365; A4215; P9046

== ENCOUNTER → 2019-05-18 | Outpatient (CLI) | payer MEDICARE ==
[~2019-05-18] MED LIST changes: +ALBUMIN (HUMAN) 25% 200 ML IV ONE; -ALBUMIN (HUMAN) 25% 200 ML IV SCH
--- NOTE | 2019-05-18 10:25 | NUR ---
U/S GD PARACENTESIS PROCEDURE PERFORMED BY DR CARTER. PUNCTURE SITE LEFT LOWER QUADRANT AND PATIENT TOLERATED PROCEDURE WELL. TOTAL REMOVED 7.7 LITERS OF CLOUDY YELLOW ASCITES FLUID. SPECIMEN SENT TO LAB. END OF PROCEDURE AT 1105. CATHETER REMOVED AND DRESSING APPLIED. ALBUMIN 25% 50 GRAMS GIVEN IV PER PROTOCOL NO BLEEDING NOTED. DISCHARGE INSTRUCTIONS GIVEN TO PATIENT AND VERBALIZED UNDERSTANDING. DISCHARGED VIA AMBULATION AT 1130. PT STABLE, AAO X3 WITH NO C/O PAIN.
[2019-05-18 10:26] LABS: INR 1.1 (0.85-1.15); PARTIAL THROMBOPLASTIN TIME 34.3 SEC (26.3-35.5); PROTHROMBIN TIME 11.5 SEC (9.6-11.6)
[2019-05-18 13:20] LABS: BF LYMPHOCYTE 21 %; BF MESOTHELIAL 61 %; BF MONOCYTE 3 %
[2019-05-18 13:30] LABS: APPEARANCE BODY FLUID CLEAR (CLEAR); BODY FLUID WBC 236 /cu. mm.; COLOR,BODY FLUID YELLOW (LT YELLOW); SPECIMENTYPE,BODY FLUID ASCITES; TOTAL VOLUME,BODY FLUID 7000 mL
[2019-05-18 13:31] LABS: BODY FLUID RBC 333 /cu. mm.
== END ==
LOC: RAH 09:09
PROVIDERS: ATTEND Internal Medicine Hematology & Oncology
DX: K70.31 Alcoholic cirrhosis of liver with ascites (principal)
CPT/HCPCS: 36415; 49083; 85610; 85730; 87071; 87205; 89051; 96365; A4215; P9046

== ENCOUNTER → 2019-05-25 | Outpatient (CLI) | payer MEDICARE ==
[~2019-05-25] MED LIST changes: -ALBUMIN (HUMAN) 25% 200 ML IV ONE; +ALBUMIN (HUMAN) 25% 200 ML IV SCH
--- NOTE | 2019-05-25 11:30 | NUR ---
U/S GD PARACENTESIS PROCEDURE PERFORMED BY DR Mesfin GARCIA. PUNCTURE SITE RLQ AND PATIENT TOLERATED PROCEDURE WELL. TOTAL REMOVED 7.7 LITERS OF CLOUDY YELLOW FLUID. ALBUMIN 25% 50 GRAMS IV GIVEN DURING PROCEDURE. END OF PROCEDURE AT 1100. CATHETER REMOVED AND DRESSING APPLIED. NO BLEEDING NOTED. DISCHARGE INSTRUCTIONS GIVEN TO PATIENT AND VERBALIZED UNDERSTANDING. DISCHARGED VIA AMBULATION AT 1130. AAO X3 WITH NO C/O PAIN.
== END ==
LOC: RAH 09:07
PROVIDERS: ATTEND Internal Medicine Hematology & Oncology
DX: K70.31 Alcoholic cirrhosis of liver with ascites (principal)
CPT/HCPCS: 49083; P9046

== ENCOUNTER → 2019-05-30 | Outpatient (CLI) | payer MEDICARE ==
[~2019-05-30] MED LIST changes: +ALBUMIN (HUMAN) 25% 200 ML IV ONE
--- NOTE | 2019-05-30 14:10 | NUR ---
U/S GD PARACENTESIS PROCEDURE PERFORMED BY DR Radha SOOD. PUNCTURE SITE RIGHT LOWER QUADRANT AND PATIENT TOLERATED PROCEDURE WELL. TOTAL REMOVED 5.0 LITERS OF CLOUDY YELLOW FLUID. ALBUMIN 25% 50 GRAMS IV GIVEN DURING PROCEDURE. SPECIMEN SENT TO LAB. END OF PROCEDURE AT 1445. CATHETER REMOVED AND DRESSING APPLIED. NO BLEEDING NOTED. DISCHARGE INSTRUCTIONS GIVEN TO PATIENT AND VERBALIZED UNDERSTANDING. DISCHARGED VIA AMBULATION AT 1500. AAO X3 WITH NO C/O PAIN.
[2019-05-30 20:00] LABS: SPECIMENTYPE,BODY FLUID ASCITES
[2019-05-30 20:01] LABS: APPEARANCE BODY FLUID CLOUDY (CLEAR); BODY FLUID WBC 154 /cu. mm.; COLOR,BODY FLUID LT YELLOW (LT YELLOW); TOTAL VOLUME,BODY FLUID 5000 mL
[2019-05-30 20:02] LABS: BODY FLUID RBC 393 /cu. mm.
[2019-05-30 21:24] LABS: BF LYMPHOCYTE 25 %; BF MESOTHELIAL 29 %; BF MONOCYTE 15 %; BF OTHER CELLS 1
== END ==
LOC: RAH 10:00
PROVIDERS: ATTEND Internal Medicine Hematology & Oncology
DX: K70.31 Alcoholic cirrhosis of liver with ascites (principal); D50.9 Iron deficiency anemia, unspecified
CPT/HCPCS: 49083; 87071; 87205; 89051; 96365; A4215; P9046

== ENCOUNTER → 2019-06-08 | Outpatient (CLI) | payer MEDICARE ==
[~2019-06-08] VITALS: Ht 165.1 cm; Wt 96.6 kg
[~2019-06-08] MED LIST changes: -ALBUMIN (HUMAN) 25% 200 ML IV SCH
--- NOTE | 2019-06-08 10:50 | NUR ---
U/S GD PARACENTESIS PROCEDURE PERFORMED BY DR SOOD. PUNCTURE SITE RIGHT LOWER QUADRANT AND PATIENT TOLERATED PROCEDURE WELL. TOTAL REMOVED 10 LITERS OF CLOUDY YELLOW FLUID. ALBUMIN 25% 50 GRAMS IV GIVEN DURING PROCEDURE. SPECIMEN SENT TO LAB. END OF PROCEDURE AT 1130. CATHETER REMOVED AND DRESSING APPLIED. NO BLEEDING NOTED. DISCHARGE INSTRUCTIONS GIVEN TO PATIENT AND VERBALIZED UNDERSTANDING. DISCHARGED VIA AMBULATION AT 1150. AAO X3 WITH NO C/O PAIN.
[2019-06-08 15:55] LABS: BF LYMPHOCYTE 23 %; BF MESOTHELIAL 54 %
[2019-06-08 16:03] LABS: APPEARANCE BODY FLUID SLIGHTLY CLOUDY (CLEAR); COLOR,BODY FLUID YELLOW (LT YELLOW); SPECIMENTYPE,BODY FLUID ASCITES
[2019-06-08 16:04] LABS: BODY FLUID WBC 108 /cu. mm.; TOTAL VOLUME,BODY FLUID 10000 mL
[2019-06-08 16:05] LABS: BODY FLUID RBC 225 /cu. mm.
== END ==
LOC: RAH 08:39
PROVIDERS: ATTEND Internal Medicine Hematology & Oncology
DX: K70.31 Alcoholic cirrhosis of liver with ascites (principal)
CPT/HCPCS: 49083; 87071; 87205; 89051; 96365; A4215; P9046

== ENCOUNTER → 2019-06-15 | Outpatient (CLI) | payer MEDICARE ==
[~2019-06-15] MED LIST changes: -ALBUMIN (HUMAN) 25% 200 ML IV ONE; +ALBUMIN (HUMAN) 25% 200 ML IV SCH
--- NOTE | 2019-06-15 08:45 | NUR ---
U/S GD PARACENTESIS PROCEDURE PERFORMED BY DR SOOD. PUNCTURE SITE RIGHT LOWER QUADRANT AND PATIENT TOLERATED PROCEDURE WELL. TOTAL REMOVED 7.5 LITERS OF CLOUDY YELLOW FLUID. ALBUMIN 25% 50 GRAMS IV GIVEN DURING PROCEDURE. SPECIMEN SENT TO LAB. END OF PROCEDURE AT 0915. CATHETER REMOVED AND DRESSING APPLIED. NO BLEEDING NOTED. DISCHARGE INSTRUCTIONS GIVEN TO PATIENT AND VERBALIZED UNDERSTANDING. DISCHARGED VIA AMBULATION AT 0935. AAO X3 WITH NO C/O PAIN.
[2019-06-15 10:56] LABS: APPEARANCE BODY FLUID SLIGHTLY CLOUDY (CLEAR); COLOR,BODY FLUID LT YELLOW (LT YELLOW); SPECIMENTYPE,BODY FLUID ASCITES; TOTAL VOLUME,BODY FLUID 7500 mL
[2019-06-15 10:57] LABS: BODY FLUID RBC 150 /cu. mm.; BODY FLUID WBC 105 /cu. mm.
[2019-06-15 11:02] LABS: BF LYMPHOCYTE 29 %; BF MESOTHELIAL 27 %; BF MONOCYTE 1 %
== END | disposition home or self-care (01) ==
LOC: RAH 07:41
PROVIDERS: ATTEND Internal Medicine Hematology & Oncology
DX: K70.31 Alcoholic cirrhosis of liver with ascites (principal)
CPT/HCPCS: 49083; 87071; 87205; 89051; 96365; A4215; P9046

== ENCOUNTER → 2019-06-22 | Outpatient (CLI) | payer MEDICARE ==
--- NOTE | 2019-06-22 11:15 | NUR ---
U/S GD PARACENTESIS PROCEDURE PERFORMED BY DR CARTER. PUNCTURE SITE RIGHT LOWER QUADRANT AND PATIENT TOLERATED PROCEDURE WELL. TOTAL REMOVED 8.8 LITERS OF CLOUDY YELLOW FLUID. ALBUMIN 25% 50 GRAMS IV GIVEN DURING PROCEDURE. SPECIMEN SENT TO LAB. END OF PROCEDURE AT 1155. CATHETER REMOVED AND DRESSING APPLIED. NO BLEEDING NOTED. DISCHARGE INSTRUCTIONS GIVEN TO PATIENT AND VERBALIZED UNDERSTANDING. DISCHARGED AMBULATORY @ 1225. AAO X3 WITH NO C/O PAIN.
[2019-06-22 11:34] LABS: INR 1.08 (0.85-1.15); PARTIAL THROMBOPLASTIN TIME 22.3 SEC (26.3-35.5); PROTHROMBIN TIME 11.3 SEC (9.6-11.6)
[2019-06-22 14:20] LABS: SPECIMENTYPE,BODY FLUID ASCITES
[2019-06-22 14:21] LABS: APPEARANCE BODY FLUID SLIGHTLY CLOUDY (CLEAR); COLOR,BODY FLUID LT YELLOW (LT YELLOW); TOTAL VOLUME,BODY FLUID 880 mL
[2019-06-22 14:22] LABS: BODY FLUID RBC 220 /cu. mm.; BODY FLUID WBC 83 /cu. mm.
[2019-06-22 17:44] LABS: BF LYMPHOCYTE 37 %; BF MESOTHELIAL 33 %; BF MONOCYTE 5 %
== END ==
LOC: RAH 08:40
PROVIDERS: ATTEND Internal Medicine Hematology & Oncology
DX: K70.31 Alcoholic cirrhosis of liver with ascites (principal); D50.9 Iron deficiency anemia, unspecified
CPT/HCPCS: 36415; 49083; 85610; 85730; 87071; 87205; 89051; 96365; A4215; P9046

== ENCOUNTER → 2019-07-06 | Outpatient (CLI) | payer MEDICARE ==
[~2019-07-06] MED LIST changes: +ALBUMIN (HUMAN) 25% 200 ML IV ONE; -ALBUMIN (HUMAN) 25% 200 ML IV SCH
--- NOTE | 2019-07-06 10:45 | NUR ---
U/S GD PARACENTESIS PROCEDURE PERFORMED BY DR Liang TABARES. PUNCTURE SITE RLQ AND PATIENT TOLERATED PROCEDURE WELL. TOTAL REMOVED 5.7 LITERS OF CLOUDY YELLOW FLUID. ALBUMIN 25% 50 GRAMS IV GIVEN POST PROCEDURE. SPECIMEN SENT TO LAB. END OF PROCEDURE AT 1015. CATHETER REMOVED AND DRESSING APPLIED. NO BLEEDING NOTED. DISCHARGE INSTRUCTIONS GIVEN TO PATIENT AND VERBALIZED UNDERSTANDING. DISCHARGED VIA AMBULATION AT 1045. AAO X3 WITH NO C/O PAIN
[2019-07-06 13:00] LABS: APPEARANCE BODY FLUID SLIGHTLY CLOUDY (CLEAR); COLOR,BODY FLUID YELLOW (LT YELLOW); SPECIMENTYPE,BODY FLUID ASCITES
[2019-07-06 13:01] LABS: TOTAL VOLUME,BODY FLUID 5700 mL
[2019-07-06 13:03] LABS: BODY FLUID RBC 200 /cu. mm.; BODY FLUID WBC 194 /cu. mm.
[2019-07-06 13:12] LABS: BF LYMPHOCYTE 35 %; BF MONOCYTE 18 %
== END ==
LOC: RAH 09:01
PROVIDERS: ATTEND Internal Medicine Hematology & Oncology
DX: K70.31 Alcoholic cirrhosis of liver with ascites (principal)
CPT/HCPCS: 49083; 87071; 87205; 89051; 96365; A4215; P9046

== ENCOUNTER → 2019-07-12 | Outpatient (CLI) | payer MEDICARE ==
--- NOTE | 2019-07-12 08:40 | NUR ---
U/S GD PARACENTESIS PROCEDURE PERFORMED BY DR OLIVER. PUNCTURE SITE LEFT LOWER QUADRANT OF ABDOMEN AND PATIENT TOLERATED PROCEDURE WELL. TOTAL REMOVED 7.0 LITERS OF CLOUDY YELLOW FLUID. ALBUMIN 25% 50 GRAMS IV GIVEN POST PROCEDURE. SPECIMEN SENT TO LAB. END OF PROCEDURE AT 0915. CATHETER REMOVED AND DRESSING APPLIED. NO BLEEDING NOTED. DISCHARGE INSTRUCTIONS GIVEN TO PATIENT AND VERBALIZED UNDERSTANDING. DISCHARGED VIA AMBULATION AT 0940. AAO X3 WITH NO C/O PAIN
[2019-07-12 13:17] LABS: BF LYMPHOCYTE 11 %; BF MESOTHELIAL 69 %; BF MONOCYTE 7 %
[2019-07-12 13:18] LABS: SPECIMENTYPE,BODY FLUID ASCITES
[2019-07-12 13:19] LABS: APPEARANCE BODY FLUID CLEAR (CLEAR); COLOR,BODY FLUID YELLOW (LT YELLOW); TOTAL VOLUME,BODY FLUID 7000 mL
[2019-07-12 13:20] LABS: BODY FLUID RBC 365 /cu. mm.; BODY FLUID WBC 172 /cu. mm.
== END ==
LOC: RAH 07:29
PROVIDERS: ATTEND Internal Medicine Hematology & Oncology
DX: K70.31 Alcoholic cirrhosis of liver with ascites (principal)
CPT/HCPCS: 49083; 87071; 87205; 89051; 96365; P9046

== ENCOUNTER → 2019-07-19 | Outpatient (CLI) | payer MEDICARE ==
[~2019-07-19] MED LIST changes: -ALBUMIN (HUMAN) 25% 200 ML IV ONE; +ALBUMIN (HUMAN) 25% 200 ML IV SCH
--- NOTE | 2019-07-19 08:30 | NUR ---
U/S GD PARACENTESIS PROCEDURE PERFORMED BY DR OLIVER. PUNCTURE SITE RIGHT LOWER QUADRANT OF ABDOMEN AND PATIENT TOLERATED PROCEDURE WELL. TOTAL REMOVED 6.5 LITERS OF CLOUDY YELLOW FLUID. ALBUMIN 25% 50 GRAMS IV GIVEN POST PROCEDURE. SPECIMEN SENT TO LAB. END OF PROCEDURE AT 0905. CATHETER REMOVED AND DRESSING APPLIED. NO BLEEDING NOTED. DISCHARGE INSTRUCTIONS GIVEN TO PATIENT AND VERBALIZED UNDERSTANDING. DISCHARGED VIA AMBULATION AT 0945. AAO X3 WITH NO C/O PAIN
[2019-07-19 13:30] LABS: APPEARANCE BODY FLUID CLEAR (CLEAR); COLOR,BODY FLUID YELLOW (LT YELLOW); SPECIMENTYPE,BODY FLUID ASCITES; TOTAL VOLUME,BODY FLUID 6500 mL
[2019-07-19 13:31] LABS: BODY FLUID RBC 665 /cu. mm.; BODY FLUID WBC 59 /cu. mm.
[2019-07-19 13:38] LABS: BF LYMPHOCYTE 24 %; BF MESOTHELIAL 56 %
== END ==
LOC: RAH 07:25
PROVIDERS: ATTEND Internal Medicine Hematology & Oncology
DX: K70.31 Alcoholic cirrhosis of liver with ascites (principal)
CPT/HCPCS: 49083; 87071; 87205; 89051; 96365; A4215; P9046

== ENCOUNTER → 2019-07-26 | Outpatient (CLI) | payer MEDICARE ==
[~2019-07-26] VITALS: Ht 165.1 cm; Wt 96.6 kg
[~2019-07-26] MED LIST changes: +ALBUMIN (HUMAN) 25% 200 ML IV ONE
[2019-07-26 08:58] LABS: INR 1.09 (0.85-1.15); PARTIAL THROMBOPLASTIN TIME 29.9 SEC (26.3-35.5); PROTHROMBIN TIME 11.4 SEC (9.6-11.6)
--- NOTE | 2019-07-26 09:05 | NUR ---
U/S GD PARACENTESIS PROCEDURE PERFORMED BY DR OLIVER. PUNCTURE SITE RIGHT LOWER QUADRANT OF ABDOMEN AND PATIENT TOLERATED PROCEDURE WELL. TOTAL REMOVED 7.0 LITERS OF CLOUDY YELLOW FLUID. ALBUMIN 25% 50 GRAMS IV GIVEN POST PROCEDURE. SPECIMEN SENT TO LAB. END OF PROCEDURE AT 0935. CATHETER REMOVED AND DRESSING APPLIED. NO BLEEDING NOTED. DISCHARGE INSTRUCTIONS GIVEN TO PATIENT AND VERBALIZED UNDERSTANDING. DISCHARGED VIA AMBULATION AT 1005. AAO X3 WITH NO C/O PAIN
[2019-07-26 13:45] LABS: APPEARANCE BODY FLUID CLEAR (CLEAR); COLOR,BODY FLUID YELLOW (LT YELLOW); SPECIMENTYPE,BODY FLUID ASCITES; TOTAL VOLUME,BODY FLUID 7000 mL
[2019-07-26 13:46] LABS: BODY FLUID RBC 401 /cu. mm.; BODY FLUID WBC 178 /cu. mm.
[2019-07-26 14:41] LABS: BF LYMPHOCYTE 10 %; BF MESOTHELIAL 74 %; BF MONOCYTE 3 %
== END ==
LOC: RAH 07:35
PROVIDERS: ATTEND Internal Medicine Hematology & Oncology
DX: K70.31 Alcoholic cirrhosis of liver with ascites (principal); D50.9 Iron deficiency anemia, unspecified
CPT/HCPCS: 36415; 49083; 85610; 85730; 87071; 87205; 89051; 96365; A4215; P9046

== ENCOUNTER → 2019-08-02 | Outpatient (CLI) | payer MEDICARE ==
[~2019-08-02] MED LIST changes: +ALBUMIN (HUMAN) 25% 100 ML IV SCH; -ALBUMIN (HUMAN) 25% 200 ML IV ONE; -ALBUMIN (HUMAN) 25% 200 ML IV SCH
--- NOTE | 2019-08-02 08:40 | NUR ---
U/S GD PARACENTESIS PROCEDURE PERFORMED BY DR. CARTER. PUNCTURE SITE RIGHT LOWER QUADRANT OF ABDOMEN AND PATIENT TOLERATED PROCEDURE WELL. TOTAL REMOVED 6.3 LITERS OF CLOUDY YELLOW FLUID. ALBUMIN 25% 25 GRAMS IV GIVEN POST PROCEDURE. SPECIMEN SENT TO LAB. END OF PROCEDURE AT 0905. CATHETER REMOVED AND DRESSING APPLIED. NO BLEEDING NOTED. DISCHARGE INSTRUCTIONS GIVEN TO PATIENT AND VERBALIZED UNDERSTANDING. DISCHARGED VIA AMBULATION AT 0930. AAO X3 WITH NO C/O PAIN
[2019-08-02 13:57] LABS: APPEARANCE BODY FLUID SLIGHTLY CLOUDY (CLEAR); COLOR,BODY FLUID LT YELLOW (LT YELLOW); SPECIMENTYPE,BODY FLUID ASCITES
[2019-08-02 13:58] LABS: BODY FLUID WBC 85 /cu. mm.; TOTAL VOLUME,BODY FLUID 6300 mL
[2019-08-02 13:59] LABS: BODY FLUID RBC 560 /cu. mm.
[2019-08-02 14:13] LABS: BF EOSINOPHIL 1 %; BF LYMPHOCYTE 74 %; BF MESOTHELIAL 25 %; BF MONOCYTE 15 %
== END ==
LOC: RAH 07:28
PROVIDERS: ATTEND Internal Medicine Hematology & Oncology
DX: K70.31 Alcoholic cirrhosis of liver with ascites (principal)
CPT/HCPCS: 49083; 87071; 87205; 89051; 96365; A4215; P9046 ×2

== ENCOUNTER → 2019-08-09 | Outpatient (CLI) | payer MEDICARE ==
[~2019-08-09] VITALS: Ht 165.1 cm; Wt 96.6 kg
[~2019-08-09] MED LIST changes: -ALBUMIN (HUMAN) 25% 100 ML IV SCH; +ALBUMIN (HUMAN) 25% 200 ML IV SCH
--- NOTE | 2019-08-09 09:30 | NUR ---
U/S GD PARACENTESIS PROCEDURE PERFORMED BY DR WILLIS. PUNCTURE SITE LEFT LOWER QUADRANT OF ABDOMEN AND PATIENT TOLERATED PROCEDURE WELL. TOTAL REMOVED 6.7 LITERS OF CLOUDY [place] ASCITES FLUID. END OF PROCEDURE AT 0955. CATHETER REMOVED AND DRESSING APPLIED. ALBUMIN 25% 50 GRAMS GIVEN DURING PROCEDURE PER [facility] [place] ALBUMIN PROTOCOL. NO BLEEDING NOTED. DISCHARGE INSTRUCTIONS GIVEN TO PATIENT. PATIENT VERBALIZED UNDERSTANDING. PT STALBE, AAO X3 WITH NO C/O PAIN. SPECIMEN SENT TO LAB.
[2019-08-09 14:07] LABS: APPEARANCE BODY FLUID SLIGHTLY CLOUDY (CLEAR); BODY FLUID WBC 157 /cu. mm.; COLOR,BODY FLUID YELLOW (LT YELLOW); SPECIMENTYPE,BODY FLUID ASCITES; TOTAL VOLUME,BODY FLUID 6700 mL
[2019-08-09 14:08] LABS: BODY FLUID RBC 200 /cu. mm.
[2019-08-09 14:15] LABS: BF LYMPHOCYTE 40 %; BF MONOCYTE 37 %
== END ==
LOC: RAH 07:41
PROVIDERS: ATTEND Internal Medicine Hematology & Oncology
DX: R18.8 Other ascites (principal); K74.60 Unspecified cirrhosis of liver; I25.10 Atherosclerotic heart disease of native coronary artery without angina pectoris; I10 Essential (primary) hypertension; M19.90 Unspecified osteoarthritis, unspecified site; Z98.890 Other specified postprocedural states; Z79.899 Other long term (current) drug therapy
CPT/HCPCS: 49083; 87071; 87205; 89051; 96365; A4215; P9046

== ENCOUNTER → 2019-08-16 | Outpatient (CLI) | payer MEDICARE ==
--- NOTE | 2019-08-16 09:20 | NUR ---
U/S GUIDED PARACENTESIS PROCEDURE PERFORMED BY DR. GARCIA. PUNCTURE SITE RIGHT LOWER QUADRANT OF ABDOMEN AND PATIENT TOLERATED PROCEDURE WELL. TOTAL REMOVED 8.5 LITERS OF CLOUDY YELLOW ASCITES FLUID. END OF PROCEDURE AT 0950. CATHETER REMOVED AND DRESSING APPLIED. ALBUMIN 25% 50 GRAMS GIVEN IV DURING PROCED[place] [facility] [place]. NO BLEEDING NOTED. DISCHARGE INSTRUCTIONS GIVEN TO PATIENT. PATIENT VERBALIZED UNDERSTANDING. PT AMBULATORY, STABLE, AAO X3 WITH NO C/O PAIN. SPECIMEN SENT TO LAB.
[2019-08-16 13:24] LABS: APPEARANCE BODY FLUID SLIGHTLY CLOUDY (CLEAR); COLOR,BODY FLUID LT YELLOW (LT YELLOW); SPECIMENTYPE,BODY FLUID ASCITES; TOTAL VOLUME,BODY FLUID 8500 mL
[2019-08-16 13:26] LABS: BODY FLUID RBC 275 /cu. mm.; BODY FLUID WBC 99 /cu. mm.
[2019-08-16 14:21] LABS: BF LYMPHOCYTE 11 %; BF MESOTHELIAL 44 %; BF MONOCYTE 2 %
== END ==
LOC: RAH 07:46
PROVIDERS: ATTEND Internal Medicine Hematology & Oncology
DX: K70.31 Alcoholic cirrhosis of liver with ascites (principal); I12.9 Hypertensive chronic kidney disease with stage 1 through stage 4 chronic kidney disease, or unspecified chronic kidney disease; E11.22 Type 2 diabetes mellitus with diabetic chronic kidney disease; N18.3 Chronic kidney disease, stage 3 (moderate); D63.1 Anemia in chronic kidney disease; E78.5 Hyperlipidemia, unspecified; K21.9 Gastro-esophageal reflux disease without esophagitis; I25.10 Atherosclerotic heart disease of native coronary artery without angina pectoris; E03.9 Hypothyroidism, unspecified; M86.071 Acute hematogenous osteomyelitis, right ankle and foot; Z98.890 Other specified postprocedural states; Z79.899 Other long term (current) drug therapy; Z83.3 Family history of diabetes mellitus
CPT/HCPCS: 49083; 87071; 87205; 89051; 96365; A4215; P9046

== ENCOUNTER → 2019-08-23 | Outpatient (CLI) | payer MEDICARE ==
[~2019-08-23] VITALS: Ht 165.1 cm; Wt 96.6 kg
[~2019-08-23] MED LIST changes: +ALBUMIN (HUMAN) 25% 200 ML IV ONE
--- NOTE | 2019-08-23 09:30 | NUR ---
U/S GD PARACENTESIS PROCEDURE PERFORMED BY DR Mesfin GARCIA. PUNCTURE SITE RLQ AND PATIENT TOLERATED PROCEDURE WELL. TOTAL REMOVED 7.8 LITERS OF CLOUDY YELLOW FLUID. ALBUMIN 25% 50 GRAMS IV GIVEN DURING PROCEDURE. SPECIMEN SENT TO LAB. END OF PROCEDURE AT 0900. CATHETER REMOVED AND DRESSING APPLIED. NO BLEEDING NOTED. DISCHARGE INSTRUCTIONS GIVEN TO PATIENT AND VERBALIZED UNDERSTANDING. DISCHARGED VIA AMBULATION AT 0930. AAO X3 WITH NO C/O PAIN.
[2019-08-23 12:36] LABS: APPEARANCE BODY FLUID CLEAR (CLEAR); BODY FLUID WBC 117 /cu. mm.; COLOR,BODY FLUID YELLOW (LT YELLOW); SPECIMENTYPE,BODY FLUID ASCITES; TOTAL VOLUME,BODY FLUID 7800 mL
[2019-08-23 12:37] LABS: BODY FLUID RBC 197 /cu. mm.
[2019-08-23 13:30] LABS: BF LYMPHOCYTE 17 %; BF MESOTHELIAL 65 %; BF MONOCYTE 12 %
== END ==
LOC: RAH 07:23
PROVIDERS: ATTEND Internal Medicine Hematology & Oncology
DX: K70.31 Alcoholic cirrhosis of liver with ascites (principal); E78.5 Hyperlipidemia, unspecified; E03.9 Hypothyroidism, unspecified; K21.9 Gastro-esophageal reflux disease without esophagitis; M19.90 Unspecified osteoarthritis, unspecified site; I25.10 Atherosclerotic heart disease of native coronary artery without angina pectoris; I25.9 Chronic ischemic heart disease, unspecified; I12.9 Hypertensive chronic kidney disease with stage 1 through stage 4 chronic kidney disease, or unspecified chronic kidney disease; E11.22 Type 2 diabetes mellitus with diabetic chronic kidney disease; N18.3 Chronic kidney disease, stage 3 (moderate); Z79.899 Other long term (current) drug therapy; Z83.3 Family history of diabetes mellitus; Z89.511 Acquired absence of right leg below knee; Z82.49 Family history of ischemic heart disease and other diseases of the circulatory system
CPT/HCPCS: 49083; 87071; 87205; 89051; 96365; A4215; P9046

== ENCOUNTER → 2019-08-30 | Outpatient (CLI) | payer MEDICARE ==
[~2019-08-30] MED LIST changes: -ALBUMIN (HUMAN) 25% 200 ML IV SCH
[2019-08-30 08:33] LABS: INR 1.12 (0.85-1.15); PARTIAL THROMBOPLASTIN TIME 31.7 SEC (26.3-35.5); PROTHROMBIN TIME 11.7 SEC (9.6-11.6)
--- NOTE | 2019-08-30 09:05 | NUR ---
U/S GD PARACENTESIS PROCEDURE PERFORMED BY DR CARTER. PUNCTURE SITE RIGHT LOWER QUADRANT OF ABDOMEN AND PATIENT TOLERATED PROCEDURE WELL. TOTAL REMOVED 8.2 LITERS OF CLOUDY YELLOW FLUID. END OF PROCEDURE AT 0935. CATHETER REMOVED AND DRESSING APPLIED. NO BLEEDING NOTED. ALBUMIN 25% 50 GRAMS GIVEN DURING PROCEDURE PER [facility] [place] ALBUMIN PROTOCOL. DISCHARGE INSTRUCTIONS GIVEN TO PATIENT. PATIENT VERBALIZED UNDERSTANDING. PT DISCHARGED AMBULATORY, STABLE, AAO X3 WITH NO C/O PAIN. SPECIMEN SENT TO LAB.
[2019-08-30 16:52] LABS: APPEARANCE BODY FLUID CLOUDY (CLEAR); COLOR,BODY FLUID YELLOW (LT YELLOW); SPECIMENTYPE,BODY FLUID ASCITES; TOTAL VOLUME,BODY FLUID 8200 mL
[2019-08-30 16:53] LABS: BODY FLUID RBC 161 /cu. mm.; BODY FLUID WBC 88 /cu. mm.
[2019-08-30 16:55] LABS: BF EOSINOPHIL 2 %; BF LYMPHOCYTE 27 %; BF MESOTHELIAL 41 %; BF MONOCYTE 4 %
== END ==
LOC: RAH 07:17
PROVIDERS: ATTEND Internal Medicine Hematology & Oncology
DX: K70.31 Alcoholic cirrhosis of liver with ascites (principal); E03.9 Hypothyroidism, unspecified; K21.9 Gastro-esophageal reflux disease without esophagitis; M19.90 Unspecified osteoarthritis, unspecified site; I25.10 Atherosclerotic heart disease of native coronary artery without angina pectoris; I12.9 Hypertensive chronic kidney disease with stage 1 through stage 4 chronic kidney disease, or unspecified chronic kidney disease; E11.22 Type 2 diabetes mellitus with diabetic chronic kidney disease; N18.3 Chronic kidney disease, stage 3 (moderate); Z79.899 Other long term (current) drug therapy; Z98.890 Other specified postprocedural states; Z83.3 Family history of diabetes mellitus
CPT/HCPCS: 36415; 49083; 85610; 85730; 87071; 87205; 89051; 96365; A4215; P9046

== ENCOUNTER → 2019-09-06 | Outpatient (CLI) | payer MEDICARE ==
[~2019-09-06] VITALS: Ht 165.1 cm; Wt 96.2 kg
[~2019-09-06] MED LIST changes: -ALBUMIN (HUMAN) 25% 200 ML IV ONE; +ALBUMIN (HUMAN) 25% 200 ML IV SCH
--- NOTE | 2019-09-06 09:20 | NUR ---
U/S GD PARACENTESIS PROCEDURE PERFORMED BY DR CARTER. PUNCTURE SITE LEFT LOWER QUADRANT OF ABDOMEN AND PATIENT TOLERATED PROCEDURE WELL. TOTAL REMOVED 9.7 LITERS OF CLOUDY YELLOW FLUID. END OF PROCEDURE AT 1005. CATHETER REMOVED AND DRESSING APPLIED. NO BLEEDING NOTED, ALBUMIN 25% 50 GRAMS GIVEN DURING PROCEDURE PER [place] ALBUMIN PROTOCOL. DISCHARGE INSTRUCTIONS GIVEN TO PATIENT. PATIENT VERBALIZED UNDERSTANDING. PT DISCHARGED VIA AMBULATION, STABLE, AAO X3 WITH NO C/O PAIN. SPECIMEN SENT TO LAB.
[2019-09-06 18:28] LABS: APPEARANCE BODY FLUID SLIGHTLY CLOUDY (CLEAR); SPECIMENTYPE,BODY FLUID ASCITES
[2019-09-06 18:29] LABS: BODY FLUID RBC 50 /cu. mm.; BODY FLUID WBC 156 /cu. mm.; COLOR,BODY FLUID YELLOW (LT YELLOW); TOTAL VOLUME,BODY FLUID 9700 mL
[2019-09-06 18:32] LABS: BF EOSINOPHIL 6 %; BF LYMPHOCYTE 26 %; BF MONOCYTE 52 %
== END | disposition home or self-care (01) ==
LOC: RAH 08:22
PROVIDERS: ATTEND Internal Medicine Hematology & Oncology
DX: R18.8 Other ascites (principal); E78.5 Hyperlipidemia, unspecified; E11.9 Type 2 diabetes mellitus without complications; I10 Essential (primary) hypertension; K21.9 Gastro-esophageal reflux disease without esophagitis; M19.90 Unspecified osteoarthritis, unspecified site; I25.10 Atherosclerotic heart disease of native coronary artery without angina pectoris; E03.9 Hypothyroidism, unspecified; Z98.890 Other specified postprocedural states; Z79.899 Other long term (current) drug therapy; Z80.8 Family history of malignant neoplasm of other organs or systems
CPT/HCPCS: 49083; 87071; 87205; 89051; 96365; A4215; P9046

== ENCOUNTER → 2019-09-13 | Outpatient (CLI) | payer MEDICARE ==
--- NOTE | 2019-09-13 09:15 | NUR ---
U/S GD PARACENTESIS PROCEDURE PERFORMED BY DR Melani OLIVER. PUNCTURE SITE RIGHT LOWER QUADRANT OF ABDOMEN AND PATIENT TOLERATED PROCEDURE WELL. TOTAL REMOVED 8.2 LITERS OF CLOUDY YELLOW FLUID. END OF PROCEDURE AT 0845. CATHETER REMOVED AND DRESSING APPLIED. NO BLEEDING NOTED, ALBUMIN 25% 50 GRAMS GIVEN DURING PROCEDURE PER [facility] [place] ALBUMIN PROTOCOL. DISCHARGE INSTRUCTIONS GIVEN TO PATIENT. PATIENT VERBALIZED UNDERSTANDING. PT DISCHARGED VIA AMBULATION, STABLE, AAO X3 WITH NO C/O PAIN. SPECIMEN SENT TO LAB.
[2019-09-13 16:54] LABS: SPECIMENTYPE,BODY FLUID ASCITES
[2019-09-13 16:55] LABS: APPEARANCE BODY FLUID CLOUDY (CLEAR); BODY FLUID WBC 61 /cu. mm.; COLOR,BODY FLUID YELLOW (LT YELLOW); TOTAL VOLUME,BODY FLUID 8200 mL
[2019-09-13 16:56] LABS: BODY FLUID RBC 166 /cu. mm.
[2019-09-13 17:01] LABS: BF LYMPHOCYTE 13 %; BF MESOTHELIAL 31 %; BF MONOCYTE 4 %
== END | disposition home or self-care (01) ==
LOC: RAH 07:18
PROVIDERS: ATTEND Internal Medicine Hematology & Oncology
DX: R18.8 Other ascites (principal); I25.10 Atherosclerotic heart disease of native coronary artery without angina pectoris; I12.9 Hypertensive chronic kidney disease with stage 1 through stage 4 chronic kidney disease, or unspecified chronic kidney disease; E11.22 Type 2 diabetes mellitus with diabetic chronic kidney disease; N18.3 Chronic kidney disease, stage 3 (moderate); K21.9 Gastro-esophageal reflux disease without esophagitis; E78.5 Hyperlipidemia, unspecified; E03.9 Hypothyroidism, unspecified; Z79.899 Other long term (current) drug therapy
CPT/HCPCS: 49083; 87071; 87205; 89051; 96365; A4215; P9046

== ENCOUNTER → 2019-09-20 | Outpatient (CLI) | payer MEDICARE ==
[~2019-09-20] MED LIST changes: +ALBUMIN (HUMAN) 25% 200 ML IV ONE; -ALBUMIN (HUMAN) 25% 200 ML IV SCH
--- NOTE | 2019-09-20 08:50 | NUR ---
U/S GD PARACENTESIS PROCEDURE PERFORMED BY DR OLIVER. PUNCTURE SITE RIGHT LOWER QUADRANT OF ABDOMEN AND PATIENT TOLERATED PROCEDURE WELL. TOTAL REMOVED 8.5 LITERS OF CLOUDY YELLOW FLUID. END OF PROCEDURE AT 0930. CATHETER REMOVED AND DRESSING APPLIED. NO BLEEDING NOTED. ALBUMIN 25% 50 GRAMS GIVEN DURING PROCEDURE PER [facility] [place]. DISCHARGE INSTRUCTIONS GIVEN TO PATIENT. PATIENT VERBALIZED UNDERSTANDING. PT DISCHARGED AMBULATORY, STABLE, AAO X3 WITH NO C/O PAIN. SPECIMEN SENT TO LAB.
[2019-09-20 14:12] LABS: APPEARANCE BODY FLUID CLEAR (CLEAR); COLOR,BODY FLUID YELLOW (LT YELLOW); SPECIMENTYPE,BODY FLUID ASCITES
[2019-09-20 14:13] LABS: BODY FLUID RBC 248 /cu. mm.; BODY FLUID WBC 107 /cu. mm.; TOTAL VOLUME,BODY FLUID 8500 mL
[2019-09-20 14:21] LABS: BF EOSINOPHIL 3 %; BF LYMPHOCYTE 19 %; BF MESOTHELIAL 57 %; BF MONOCYTE 15 %
== END | disposition home or self-care (01) ==
LOC: RAH 07:16
PROVIDERS: ATTEND Internal Medicine Hematology & Oncology
DX: R18.8 Other ascites (principal); I25.10 Atherosclerotic heart disease of native coronary artery without angina pectoris; I12.9 Hypertensive chronic kidney disease with stage 1 through stage 4 chronic kidney disease, or unspecified chronic kidney disease; E11.22 Type 2 diabetes mellitus with diabetic chronic kidney disease; N18.3 Chronic kidney disease, stage 3 (moderate); E78.5 Hyperlipidemia, unspecified; K21.9 Gastro-esophageal reflux disease without esophagitis; E03.9 Hypothyroidism, unspecified; M19.90 Unspecified osteoarthritis, unspecified site; Z79.899 Other long term (current) drug therapy
CPT/HCPCS: 49083; 87071; 87205; 89051; 96365; A4215; P9046

== ENCOUNTER → 2019-09-27 | Outpatient (CLI) | payer MEDICARE ==
[~2019-09-27] MED LIST changes: -ALBUMIN (HUMAN) 25% 200 ML IV ONE; +ALBUMIN (HUMAN) 25% 200 ML IV SCH
--- NOTE | 2019-09-27 08:40 | NUR ---
U/S GD PARACENTESIS PROCEDURE PERFORMED BY DR CARTER. PUNCTURE SITE RIGHT LOWER QUADRANT OF ABDOMEN AND PATIENT TOLERATED PROCEDURE WELL. TOTAL REMOVED 8.3 LITERS OF CLOUDY YELLOW ASCITES FLUID. END OF PROCEDURE AT 0920. CATHETER REMOVED AND DRESSING APPLIED. NO BLEEDING NOTED. ALBUMIN 25% 50 GRAMS GIVEN DURING PROCEDURE PER [facility] [place] ALBUMIN PROTOCOL. DISCHARGE INSTRUCTIONS GIVEN TO PATIENT. PATIENT VERBALIZED UNDERSTANDING. PT DISCHARGED AMBULATORY, STABLE, AAO X3 WITH NO C/O PAIN. SPECIMEN SENT TO LAB.
[2019-09-27 14:05] LABS: APPEARANCE BODY FLUID CLEAR (CLEAR); BODY FLUID RBC 242 /cu. mm.; BODY FLUID WBC 87 /cu. mm.; COLOR,BODY FLUID YELLOW (LT YELLOW); SPECIMENTYPE,BODY FLUID ASCITES; TOTAL VOLUME,BODY FLUID 8300 mL
[2019-09-27 14:15] LABS: BF LYMPHOCYTE 18 %; BF MESOTHELIAL 59 %; BF MONOCYTE 8 %
== END ==
LOC: RAH 07:18
PROVIDERS: ATTEND Internal Medicine Hematology & Oncology
DX: K70.31 Alcoholic cirrhosis of liver with ascites (principal); I12.9 Hypertensive chronic kidney disease with stage 1 through stage 4 chronic kidney disease, or unspecified chronic kidney disease; E11.22 Type 2 diabetes mellitus with diabetic chronic kidney disease; N18.3 Chronic kidney disease, stage 3 (moderate); I25.10 Atherosclerotic heart disease of native coronary artery without angina pectoris; K21.9 Gastro-esophageal reflux disease without esophagitis; M19.90 Unspecified osteoarthritis, unspecified site; E78.5 Hyperlipidemia, unspecified; E03.9 Hypothyroidism, unspecified; D64.9 Anemia, unspecified; M86.071 Acute hematogenous osteomyelitis, right ankle and foot; Z89.511 Acquired absence of right leg below knee; Z98.890 Other specified postprocedural states; Z79.899 Other long term (current) drug therapy; Z83.3 Family history of diabetes mellitus
CPT/HCPCS: 49083; 87071; 87205; 89051; 96365; A4215; P9046

== ENCOUNTER → 2019-10-04 | Outpatient (CLI) | payer MEDICARE ==
[~2019-10-04] MED LIST changes: +ALBUMIN (HUMAN) 25% 200 ML IV ONE
[2019-10-04 08:59] LABS: INR 1.11 (0.85-1.15); PROTHROMBIN TIME 11.6 SEC (9.6-11.6)
--- NOTE | 2019-10-04 10:30 | NUR ---
U/S GD PARACENTESIS PROCEDURE PERFORMED BY DR CARTER. PUNCTURE SITE RIGHT LOWER QUADRANT OF ABDOMEN AND PATIENT TOLERATED PROCEDURE WELL. TOTAL REMOVED 9 LITERS OF CLOUDY YELLOW ASCITES FLUID. END OF PROCEDURE AT 1000. CATHETER REMOVED AND DRESSING APPLIED. NO BLEEDING NOTED. ALBUMIN 25% 50 GRAMS GIVEN DURING PROCEDURE [place] [facility] [place]. DISCHARGE INSTRUCTIONS GIVEN TO PATIENT. PATIENT VERBALIZED UNDERSTANDING. PT DISCHARGED AMBULATORY, STABLE, AAO X3 WITH NO C/O PAIN. SPECIMEN SENT TO LAB.
[2019-10-04 14:19] LABS: APPEARANCE BODY FLUID CLEAR (CLEAR); BODY FLUID RBC 189 /cu. mm.; BODY FLUID WBC 122 /cu. mm.; COLOR,BODY FLUID YELLOW (LT YELLOW); SPECIMENTYPE,BODY FLUID ASCITES; TOTAL VOLUME,BODY FLUID 9000 mL
[2019-10-04 14:35] LABS: BF LYMPHOCYTE 21 %; BF MESOTHELIAL 64 %; BF MONOCYTE 8 %
== END ==
LOC: RAH 07:40
PROVIDERS: ATTEND Internal Medicine Hematology & Oncology
DX: K70.31 Alcoholic cirrhosis of liver with ascites (principal); I12.9 Hypertensive chronic kidney disease with stage 1 through stage 4 chronic kidney disease, or unspecified chronic kidney disease; E11.22 Type 2 diabetes mellitus with diabetic chronic kidney disease; N18.3 Chronic kidney disease, stage 3 (moderate); I25.10 Atherosclerotic heart disease of native coronary artery without angina pectoris; K21.9 Gastro-esophageal reflux disease without esophagitis; M19.90 Unspecified osteoarthritis, unspecified site; E03.9 Hypothyroidism, unspecified; Z89.511 Acquired absence of right leg below knee; Z98.890 Other specified postprocedural states; Z79.899 Other long term (current) drug therapy; Z83.3 Family history of diabetes mellitus
CPT/HCPCS: 36415; 49083; 85610; 85730; 87071; 87205; 89051; 96365; A4215; P9046

== ENCOUNTER → 2019-10-10 | Outpatient (CLI) | payer MEDICARE ==
[~2019-10-10] VITALS: Ht 165.1 cm; Wt 96.2 kg
[~2019-10-10] MED LIST changes: -ALBUMIN (HUMAN) 25% 200 ML IV ONE
--- NOTE | 2019-10-10 09:30 | NUR ---
U/S GD PARACENTESIS PROCEDURE PERFORMED BY . PUNCTURE SITE RIGHT LOWER QUADRANT OF ABDOMEN AND PATIENT TOLERATED PROCEDURE WELL. TOTAL REMOVED 7.8 LITERS OF CLOUDY YELLOW FLUID. END OF PROCEDURE AT 0920. CATHETER REMOVED AND DRESSING APPLIED. NO BLEEDING NOTED. ALBUMIN 25% 50 GRAMS GIVEN DURING PROCED[place] [facility] [place]. DISCHARGE INSTRUCTIONS GIVEN TO PATIENT. PATIENT VERBALIZED UNDERSTANDING. PT DISCHARGED AMBULATORY, STABLE, AAO X3 WITH NO C/O PAIN. SPECIMEN SENT TO LAB.
[2019-10-10 14:36] LABS: APPEARANCE BODY FLUID CLEAR (CLEAR); BODY FLUID RBC 153 /cu. mm.; BODY FLUID WBC 135 /cu. mm.; COLOR,BODY FLUID YELLOW (LT YELLOW); SPECIMENTYPE,BODY FLUID ASCITES; TOTAL VOLUME,BODY FLUID 7800 mL
[2019-10-10 14:42] LABS: BF LYMPHOCYTE 20 %; BF MESOTHELIAL 67 %; BF MONOCYTE 5 %
== END ==
LOC: RAH 07:18
PROVIDERS: ATTEND Internal Medicine Hematology & Oncology
DX: K70.31 Alcoholic cirrhosis of liver with ascites (principal); I12.9 Hypertensive chronic kidney disease with stage 1 through stage 4 chronic kidney disease, or unspecified chronic kidney disease; E11.22 Type 2 diabetes mellitus with diabetic chronic kidney disease; I25.10 Atherosclerotic heart disease of native coronary artery without angina pectoris; K21.9 Gastro-esophageal reflux disease without esophagitis; E03.9 Hypothyroidism, unspecified; M19.90 Unspecified osteoarthritis, unspecified site; Z89.511 Acquired absence of right leg below knee; Z98.890 Other specified postprocedural states; Z79.899 Other long term (current) drug therapy; Z83.3 Family history of diabetes mellitus
CPT/HCPCS: 49083; 87071; 87205; 89051; 96365; A4215; P9046

== ENCOUNTER → 2019-10-18 | Outpatient (CLI) | payer MEDICARE ==
[~2019-10-18] MED LIST changes: +ALBUMIN (HUMAN) 25% 200 ML IV ONE; -ALBUMIN (HUMAN) 25% 200 ML IV SCH
--- NOTE | 2019-10-18 08:50 | NUR ---
U/S GD PARACENTESIS PROCEDURE PERFORMED BY DR CARTER. PUNCTURE SITE RIGHT LOWER QUADRANT OF ABDOMEN AND PATIENT TOLERATED PROCEDURE WELL. TOTAL REMOVED 9.6 LITERS OF CLOUDY YELLOW FLUID. END OF PROCEDURE AT 0935. CATHETER REMOVED AND DRESSING APPLIED. NO BLEEDING NOTED. ALBUMIN 25% 50 GRAMS GIVEN DURING PROCEDURE PER [facility] [place] ALBUMIN PROTOCOL. DISCHARGE INSTRUCTIONS GIVEN TO PATIENT. PATIENT VERBALIZED UNDERSTANDING. PT DISCHARGED AMBULATORY, STABLE, AAO X3 WITH NO C/O PAIN. SPECIMEN SENT TO LAB.
[2019-10-18 15:43] LABS: SPECIMENTYPE,BODY FLUID ASCITES
[2019-10-18 15:44] LABS: APPEARANCE BODY FLUID CLOUDY (CLEAR); COLOR,BODY FLUID LT YELLOW (LT YELLOW); TOTAL VOLUME,BODY FLUID 9.6 mL
[2019-10-18 15:45] LABS: BODY FLUID RBC 160 /cu. mm.; BODY FLUID WBC 90 /cu. mm.
[2019-10-18 21:26] LABS: BF LYMPHOCYTE 15 %; BF MESOTHELIAL 5 %; BF MONOCYTE 6 %; BF OTHER CELLS 2
== END ==
LOC: RAH 07:19
PROVIDERS: ATTEND Internal Medicine Hematology & Oncology
DX: K70.31 Alcoholic cirrhosis of liver with ascites (principal); I12.9 Hypertensive chronic kidney disease with stage 1 through stage 4 chronic kidney disease, or unspecified chronic kidney disease; E11.22 Type 2 diabetes mellitus with diabetic chronic kidney disease; I25.10 Atherosclerotic heart disease of native coronary artery without angina pectoris; K21.9 Gastro-esophageal reflux disease without esophagitis; E03.9 Hypothyroidism, unspecified; M19.90 Unspecified osteoarthritis, unspecified site; Z89.511 Acquired absence of right leg below knee; Z98.890 Other specified postprocedural states; Z79.899 Other long term (current) drug therapy; Z83.3 Family history of diabetes mellitus
CPT/HCPCS: 49083; 87071; 87205; 89051; 96365; A4215; P9046

== ENCOUNTER → 2019-11-01 | Outpatient (CLI) | payer MEDICARE ==
[~2019-11-01] MED LIST changes: -ALBUMIN (HUMAN) 25% 200 ML IV ONE; +ALBUMIN (HUMAN) 25% 200 ML IV PRN
--- NOTE | 2019-11-01 08:35 | NUR ---
U/S GD PARACENTESIS PROCEDURE PERFORMED BY DR. CARTER. PUNCTURE SITE RIGHT LOWER QUADRANT OF ABDOMEN AND PATIENT TOLERATED PROCEDURE WELL. TOTAL REMOVED 10.6 LITERS OF CLOUDY YELLOW FLUID. END OF PROCEDURE AT 0920. CATHETER REMOVED AND DRESSING APPLIED. NO BLEEDING NOTED. ALBUMIN 25% 50 GRAMS GIVEN [place]ING [place] [facility] [place]. DISCHARGE INSTRUCTIONS GIVEN TO PATIENT. PATIENT VERBALIZED UNDERSTANDING. PT DISCHARGED AMBULATORY, STABLE, AAO X3 WITH NO C/O PAIN. SPECIMEN SENT TO LAB.
[2019-11-01 12:38] LABS: APPEARANCE BODY FLUID CLEAR (CLEAR); BODY FLUID WBC 123 /cu. mm.; COLOR,BODY FLUID YELLOW (LT YELLOW); SPECIMENTYPE,BODY FLUID ASCITES; TOTAL VOLUME,BODY FLUID 10600 mL
[2019-11-01 12:39] LABS: BODY FLUID RBC 1144 /cu. mm.
[2019-11-01 12:53] LABS: BF LYMPHOCYTE 21 %; BF MESOTHELIAL 65 %; BF MONOCYTE 8 %
== END ==
LOC: RAH 07:21
PROVIDERS: ATTEND Internal Medicine Hematology & Oncology
DX: K70.31 Alcoholic cirrhosis of liver with ascites (principal); I12.9 Hypertensive chronic kidney disease with stage 1 through stage 4 chronic kidney disease, or unspecified chronic kidney disease; E11.22 Type 2 diabetes mellitus with diabetic chronic kidney disease; N18.3 Chronic kidney disease, stage 3 (moderate); M19.90 Unspecified osteoarthritis, unspecified site; E78.5 Hyperlipidemia, unspecified; K21.9 Gastro-esophageal reflux disease without esophagitis; Z79.899 Other long term (current) drug therapy; Z82.49 Family history of ischemic heart disease and other diseases of the circulatory system
CPT/HCPCS: 49083; 87071; 87205; 89051; 96365; A4215

== ENCOUNTER → 2019-11-08 | Outpatient (CLI) | payer MEDICARE ==
[~2019-11-08] VITALS: Ht 165.1 cm; Wt 96.2 kg
[~2019-11-08] MED LIST changes: -ALBUMIN (HUMAN) 25% 200 ML IV PRN; +ALBUMIN (HUMAN) 25% 200 ML IV SCH
--- NOTE | 2019-11-08 09:10 | NUR ---
U/S GD PARACENTESIS PROCEDURE PERFORMED BY DR. OLIVER. PUNCTURE SITE RIGHT LOWER QUADRANT OF ABDOMEN AND PATIENT TOLERATED PROCEDURE WELL. TOTAL REMOVED 9.0 LITERS OF CLOUDY YELLOW ASCITES FLUID. END OF PROCEDURE AT 0950. CATHETER REMOVED AND DRESSING APPLIED. NO BLEEDING NOTED. ALBUMIN 25% 50 GRAMS GIVEN DURING PROCEDURE PER [facility] [place] ALBUMIN PROTOCOL. DISCHARGE INSTRUCTIONS GIVEN TO PATIENT. PATIENT VERBALIZED UNDERSTANDING. PT DISCHARGED AMBULATORY, STABLE, AAO X3 WITH NO C/O PAIN. SPECIMEN SENT TO LAB.
[2019-11-08 09:28] LABS: INR 1.09 (0.85-1.15); PARTIAL THROMBOPLASTIN TIME 30.6 SEC (26.3-35.5); PROTHROMBIN TIME 11.4 SEC (9.6-11.6)
[2019-11-08 15:48] LABS: APPEARANCE BODY FLUID CLEAR (CLEAR); BODY FLUID WBC 118 /cu. mm.; COLOR,BODY FLUID LT YELLOW (LT YELLOW); SPECIMENTYPE,BODY FLUID ASCITES; TOTAL VOLUME,BODY FLUID 9000 mL
[2019-11-08 15:49] LABS: BODY FLUID RBC 155 /cu. mm.
[2019-11-08 15:53] LABS: BF LYMPHOCYTE 26 %; BF MESOTHELIAL 45 %; BF MONOCYTE 1 %
== END ==
LOC: RAH 07:31
PROVIDERS: ATTEND Internal Medicine Hematology & Oncology
DX: R18.8 Other ascites (principal); K74.60 Unspecified cirrhosis of liver; I10 Essential (primary) hypertension; E78.5 Hyperlipidemia, unspecified; E11.9 Type 2 diabetes mellitus without complications; Z98.890 Other specified postprocedural states; Z79.899 Other long term (current) drug therapy; Z83.3 Family history of diabetes mellitus
CPT/HCPCS: 36415; 49083; 85610; 85730; 87071; 87205; 89051; 96365; A4215; P9046

== ENCOUNTER → 2019-11-15 | Outpatient (CLI) | payer MEDICARE ==
[~2019-11-15] VITALS: Ht 165.1 cm; Wt 96.2 kg
--- NOTE | 2019-11-15 08:50 | NUR ---
U/S GD PARACENTESIS PROCEDURE PERFORMED BY DR GARCIA. PUNCTURE SITE RIGHT LOWER QUADRANT OF ABDOMEN AND PATIENT TOLERATED PROCEDURE WELL. TOTAL REMOVED 9.0 LITERS OF CLOUDY YELLOW FLUID. END OF PROCEDURE AT 0920. CATHETER REMOVED AND DRESSING APPLIED. NO BLEEDING NOTED. ALBUMIN 25% 50 GRAMS GIVEN DURING PROCEDURE PER [facility] [place] ALBUMIN PROTOCOL. DISCHARGE INSTRUCTIONS GIVEN TO PATIENT. PATIENT VERBALIZED UNDERSTANDING. PT DISCHARGED AMBULATORY, STABLE, AAO X3 WITH NO C/O PAIN. SPECIMEN SENT TO LAB.
[2019-11-15 13:30] LABS: APPEARANCE BODY FLUID CLEAR (CLEAR); COLOR,BODY FLUID YELLOW (LT YELLOW); SPECIMENTYPE,BODY FLUID ASCITES; TOTAL VOLUME,BODY FLUID 9000 mL
[2019-11-15 13:31] LABS: BODY FLUID RBC 148 /cu. mm.; BODY FLUID WBC 104 /cu. mm.
[2019-11-15 13:44] LABS: BF LYMPHOCYTE 19 %; BF MESOTHELIAL 69 %; BF MONOCYTE 9 %
== END ==
LOC: RAH 07:23
PROVIDERS: ATTEND Internal Medicine Hematology & Oncology
DX: R18.8 Other ascites (principal); I10 Essential (primary) hypertension; E78.5 Hyperlipidemia, unspecified; E11.9 Type 2 diabetes mellitus without complications; Z98.890 Other specified postprocedural states; Z79.899 Other long term (current) drug therapy
CPT/HCPCS: 49083; 87071; 87205; 89051; 96365; A4215; P9046

== ENCOUNTER → 2019-11-22 | Outpatient (CLI) | payer MEDICARE ==
[~2019-11-22] MED LIST changes: +ALBUMIN (HUMAN) 25% 200 ML IV PRN; -ALBUMIN (HUMAN) 25% 200 ML IV SCH
--- NOTE | 2019-11-22 09:30 | NUR ---
U/S GD PARACENTESIS PROCEDURE PERFORMED BY DR Chasity JIMENEZ. PUNCTURE SITE RIGHT LOWER QUADRANT OF ABDOMEN AND PATIENT TOLERATED PROCEDURE WELL. TOTAL REMOVED 7.5 LITERS OF CLOUDY YELLOW FLUID. END OF PROCEDURE AT 0900. CATHETER REMOVED AND DRESSING APPLIED. NO BLEEDING NOTED. ALBUMIN 25% 50 GRAMS GIVEN DURING PROCEDURE PER [facility] [place] [place] ALBUMIN PROTOCOL. DISCHARGE INSTRUCTIONS GIVEN TO PATIENT. PATIENT VERBALIZED UNDERSTANDING. PT DISCHARGED VIA W/C, STABLE, AAO X3 WITH NO C/O PAIN. SPECIMEN SENT TO LAB.
[2019-11-22 15:30] LABS: APPEARANCE BODY FLUID SLIGHTLY CLOUDY (CLEAR); SPECIMENTYPE,BODY FLUID ASCITES
[2019-11-22 15:31] LABS: BODY FLUID WBC 67 /cu. mm.; COLOR,BODY FLUID YELLOW (LT YELLOW); TOTAL VOLUME,BODY FLUID 950 mL
[2019-11-22 15:32] LABS: BODY FLUID RBC 92 /cu. mm.
[2019-11-22 16:06] LABS: BF LYMPHOCYTE 33 %; BF MESOTHELIAL 26 %; BF MONOCYTE 1 %; BF OTHER CELLS 2
== END | disposition home or self-care (01) ==
LOC: RAH 07:29
PROVIDERS: ATTEND Internal Medicine Hematology & Oncology
DX: R18.8 Other ascites (principal); K74.60 Unspecified cirrhosis of liver; I10 Essential (primary) hypertension; E78.5 Hyperlipidemia, unspecified; E11.9 Type 2 diabetes mellitus without complications; Z98.890 Other specified postprocedural states; Z79.899 Other long term (current) drug therapy
CPT/HCPCS: 49083; 87071; 87205; 89051; 96365; A4215

== ENCOUNTER → 2019-11-29 | Outpatient (CLI) | payer MEDICARE ==
--- NOTE | 2019-11-29 08:45 | NUR ---
U/S GD PARACENTESIS PROCEDURE PERFORMED BY DR. JIMENEZ. PUNCTURE SITE RIGHT LOWER QUADRANT OF ABDOMEN AND PATIENT TOLERATED PROCEDURE WELL. TOTAL REMOVED 9.5 LITERS OF CLOUDY YELLOW FLUID. END OF PROCEDURE AT 0930. CATHETER REMOVED AND DRESSING APPLIED. NO BLEEDING NOTED. ALBUMIN 25% 50 GRAMS GIVEN DURING PROCEDURE PER [facility] [place]. PIV DC'D, BANDAID APPLIED, DRESSING DRY AND INTACT. DISCHARGE INSTRUCTIONS GIVEN TO PATIENT. PATIENT VERBALIZED UNDERSTANDING. PT DISCHARGED VIA W/C, STABLE, AAO X3 WITH NO C/O PAIN. SPECIMEN SENT TO LAB.
[2019-11-29 13:19] LABS: APPEARANCE BODY FLUID SLIGHTLY CLOUDY (CLEAR); BODY FLUID WBC 89 /cu. mm.; COLOR,BODY FLUID YELLOW (LT YELLOW); SPECIMENTYPE,BODY FLUID ASCITES; TOTAL VOLUME,BODY FLUID 9500 mL
[2019-11-29 13:20] LABS: BODY FLUID RBC 147 /cu. mm.
[2019-11-29 13:33] LABS: BF LYMPHOCYTE 28 %; BF MESOTHELIAL 48 %; BF MONOCYTE 9 %
== END ==
LOC: RAH 07:31
PROVIDERS: ATTEND Internal Medicine Hematology & Oncology
DX: R18.8 Other ascites (principal); K74.60 Unspecified cirrhosis of liver; I10 Essential (primary) hypertension; E78.5 Hyperlipidemia, unspecified; E11.9 Type 2 diabetes mellitus without complications; Z79.899 Other long term (current) drug therapy; Z98.890 Other specified postprocedural states; Z83.3 Family history of diabetes mellitus
CPT/HCPCS: 49083; 87071; 87205; 89051; 96365

== ENCOUNTER → 2019-12-06 | Outpatient (CLI) | payer MEDICARE ==
--- NOTE | 2019-12-06 10:40 | NUR ---
U/S GD PARACENTESIS PROCEDURE PERFORMED BY DR. JIMENEZ. PUNCTURE SITE RIGHT LOWER QUADRANT OF ABDOMEN AND PATIENT TOLERATED PROCEDURE WELL. TOTAL REMOVED 8.7 LITERS OF CLOUDY YELLOW FLUID. END OF PROCEDURE AT 1005. CATHETER REMOVED AND DRESSING APPLIED. NO BLEEDING NOTED. ALBUMIN 25% 50 GRAMS GIVEN DURING PROCEDURE PER [facility] [place]. PIV DC'D, BANDAID APPLIED, DRESSING DRY AND INTACT. DISCHARGE INSTRUCTIONS GIVEN TO PATIENT. PATIENT VERBALIZED UNDERSTANDING. PT DISCHARGED VIA W/C, STABLE, AAO X3 WITH NO C/O PAIN. SPECIMEN SENT TO LAB.
[2019-12-06 14:03] LABS: APPEARANCE BODY FLUID CLOUDY (CLEAR); BODY FLUID WBC 59 /cu. mm.; COLOR,BODY FLUID LT YELLOW (LT YELLOW); SPECIMENTYPE,BODY FLUID ASCITES; TOTAL VOLUME,BODY FLUID 8700 mL
[2019-12-06 14:04] LABS: BODY FLUID RBC 49 /cu. mm.
[2019-12-06 14:15] LABS: BF LYMPHOCYTE 11 %; BF MESOTHELIAL 78 %
== END | disposition home or self-care (01) ==
LOC: RAH 07:52
PROVIDERS: ATTEND Internal Medicine Hematology & Oncology
DX: R18.8 Other ascites (principal)
CPT/HCPCS: 49083; 87071; 87205; 89051

== ENCOUNTER → 2019-12-13 | Outpatient (CLI) | payer MEDICARE ==
[~2019-12-13] MED LIST changes: -ALBUMIN (HUMAN) 25% 200 ML IV PRN; +ALBUMIN (HUMAN) 25% 200 ML IV SCH
[2019-12-13 08:59] LABS: INR 1.07 (0.85-1.15); PARTIAL THROMBOPLASTIN TIME 30.6 SEC (26.3-35.5); PROTHROMBIN TIME 11.2 SEC (9.6-11.6)
--- NOTE | 2019-12-13 09:45 | NUR ---
U/S GD PARACENTESIS PROCEDURE PERFORMED BY DR. JIMENEZ. PUNCTURE SITE RIGHT LOWER QUADRANT OF ABDOMEN AND PATIENT TOLERATED PROCEDURE WELL. TOTAL REMOVED 8 LITERS OF CLOUDY YELLOW FLUID. END OF PROCEDURE AT 0905. CATHETER REMOVED AND DRESSING APPLIED. NO BLEEDING NOTED. ALBUMIN 25% 50 GRAMS GIVEN DURING [place] [facility] [place]. PIV DC'D, BANDAID APPLIED, DRESSING DRY AND INTACT. DISCHARGE INSTRUCTIONS GIVEN TO PATIENT. PATIENT VERBALIZED UNDERSTANDING. PT DISCHARGED VIA W/C, STABLE, AAO X3 WITH NO C/O PAIN. SPECIMEN SENT TO LAB.
[2019-12-13 17:37] LABS: APPEARANCE BODY FLUID CLOUDY (CLEAR); BODY FLUID WBC 63 /cu. mm.; COLOR,BODY FLUID LT YELLOW (LT YELLOW); SPECIMENTYPE,BODY FLUID ASCITES; TOTAL VOLUME,BODY FLUID 8000 mL
[2019-12-13 17:38] LABS: BODY FLUID RBC 176 /cu. mm.
[2019-12-13 17:40] LABS: BF LYMPHOCYTE 18 %; BF MESOTHELIAL 62 %; BF MONOCYTE 1 %
== END | disposition home or self-care (01) ==
LOC: RAH 07:35
PROVIDERS: ATTEND Internal Medicine Hematology & Oncology
DX: R18.8 Other ascites (principal); Z72.0 Tobacco use; E11.9 Type 2 diabetes mellitus without complications; Z79.4 Long term (current) use of insulin; Z79.84 Long term (current) use of oral hypoglycemic drugs
CPT/HCPCS: 36415; 49083; 85610; 85730; 87071; 87205; 89051; A4215; P9046

== ENCOUNTER → 2019-12-20 | Outpatient (CLI) | payer MEDICARE ==
[~2019-12-20] MED LIST changes: +ALBUMIN (HUMAN) 25% 200 ML IV PRN
--- NOTE | 2019-12-20 08:45 | NUR ---
U/S GD PARACENTESIS PROCEDURE PERFORMED BY DR. JIMENEZ. PUNCTURE SITE RIGHT LOWER QUADRANT OF ABDOMEN AND PATIENT TOLERATED PROCEDURE WELL. TOTAL REMOVED 7.5 LITERS OF CLOUDY YELLOW FLUID. END OF PROCEDURE AT 0935. CATHETER REMOVED AND DRESSING APPLIED. NO BLEEDING NOTED. ALBUMIN 25% 50 GRAMS GIVEN DURING PROCEDURE PER [facility] [place]. PIV DC'D, BANDAID APPLIED, DRESSING DRY AND INTACT. DISCHARGE INSTRUCTIONS GIVEN TO PATIENT. PATIENT VERBALIZED UNDERSTANDING. PT DISCHARGED AMBULATORY, STABLE, AAO X3 WITH NO C/O PAIN. SPECIMEN SENT TO LAB.
[2019-12-20 13:47] LABS: APPEARANCE BODY FLUID CLEAR (CLEAR); BODY FLUID RBC 135 /cu. mm.; BODY FLUID WBC 48 /cu. mm.; COLOR,BODY FLUID YELLOW (LT YELLOW); SPECIMENTYPE,BODY FLUID ASCITES
[2019-12-20 14:21] LABS: TOTAL VOLUME,BODY FLUID 7.5 mL
[2019-12-20 14:23] LABS: BF LYMPHOCYTE 7 %; BF MESOTHELIAL 85 %; BF MONOCYTE 3 %
== END ==
LOC: RAH 07:22
PROVIDERS: ATTEND Internal Medicine Hematology & Oncology
DX: R18.8 Other ascites (principal)
CPT/HCPCS: 49083; 87071; 87205; 89051; 96365; A4215; P9046

== ENCOUNTER → 2019-12-27 | Outpatient (CLI) | payer MEDICARE ==
[~2019-12-27] VITALS: Ht 165.1 cm; Wt 96.2 kg
[~2019-12-27] MED LIST changes: +ALBUMIN (HUMAN) 25% 200 ML IV ONE; -ALBUMIN (HUMAN) 25% 200 ML IV PRN; -ALBUMIN (HUMAN) 25% 200 ML IV SCH
--- NOTE | 2019-12-27 08:45 | NUR ---
U/S GD PARACENTESIS PROCEDURE PERFORMED BY DR. JIMENEZ. PUNCTURE SITE RIGHT LOWER QUADRANT OF ABDOMEN AND PATIENT TOLERATED PROCEDURE WELL. TOTAL REMOVED 9.1 LITERS OF CLOUDY YELLOW FLUID. END OF PROCEDURE AT 0925. CATHETER REMOVED AND DRESSING APPLIED. NO BLEEDING NOTED. ALBUMIN 25% 50 GRAMS GIVEN DURING PROCEDURE PER [facility] [place]BUMIN PROTOCOL. RIGHT FOREARM PIV DC'D, BANDAID APPLIED, DRESSING DRY AND INTACT. DISCHARGE INSTUCTIONS GIVEN TO PATIENT. PATIENT VERBALIZED UNDERSTANDING. PT DISCHARGED AMBULATORY WITH WALKER, STABLE, AAO X3 WITH NO C/O PAIN @ 0945. SPECIMEN SENT TO LAB.
[2019-12-27 12:08] LABS: APPEARANCE BODY FLUID CLEAR (CLEAR); BODY FLUID RBC 148 /cu. mm.; BODY FLUID WBC 90 /cu. mm.; COLOR,BODY FLUID YELLOW (LT YELLOW); SPECIMENTYPE,BODY FLUID ASCITES; TOTAL VOLUME,BODY FLUID 9100 mL
[2019-12-27 12:57] LABS: BF LYMPHOCYTE 17 %; BF MESOTHELIAL 67 %; BF MONOCYTE 9 %
== END ==
LOC: RAH 07:27
PROVIDERS: ATTEND Internal Medicine Hematology & Oncology
DX: R18.8 Other ascites (principal)
CPT/HCPCS: 49083; 87071; 87205; 89051; A4215; P9046; 96365

== ENCOUNTER → 2020-01-03 | Outpatient (CLI) | payer MEDICARE ==
[~2020-01-03] MED LIST changes: -ALBUMIN (HUMAN) 25% 200 ML IV ONE; +ALBUMIN (HUMAN) 25% 200 ML IV SCH
[2020-01-03 14:05] LABS: APPEARANCE BODY FLUID CLOUDY (CLEAR); BODY FLUID RBC 205 /cu. mm.; BODY FLUID WBC 40 /cu. mm.; COLOR,BODY FLUID YELLOW (LT YELLOW); SPECIMENTYPE,BODY FLUID ASCITES; TOTAL VOLUME,BODY FLUID 7600 mL
[2020-01-03 14:25] LABS: BF LYMPHOCYTE 5 %; BF MESOTHELIAL 84 %
== END | disposition home or self-care (01) ==
LOC: RAH 07:39
PROVIDERS: ATTEND Internal Medicine Hematology & Oncology
DX: K70.31 Alcoholic cirrhosis of liver with ascites (principal); E11.22 Type 2 diabetes mellitus with diabetic chronic kidney disease; I12.9 Hypertensive chronic kidney disease with stage 1 through stage 4 chronic kidney disease, or unspecified chronic kidney disease; N18.9 Chronic kidney disease, unspecified; E03.9 Hypothyroidism, unspecified; M19.90 Unspecified osteoarthritis, unspecified site; K21.9 Gastro-esophageal reflux disease without esophagitis; E78.5 Hyperlipidemia, unspecified; D50.9 Iron deficiency anemia, unspecified; I25.10 Atherosclerotic heart disease of native coronary artery without angina pectoris; Z98.890 Other specified postprocedural states; Z89.511 Acquired absence of right leg below knee; Z79.890 Hormone replacement therapy; Z79.84 Long term (current) use of oral hypoglycemic drugs; Z83.3 Family history of diabetes mellitus
CPT/HCPCS: 49083; 87071; 87205; 89051; 96365; A4215; P9046

== ENCOUNTER → 2020-01-10 | Outpatient (CLI) | payer MEDICARE ==
--- NOTE | 2020-01-10 09:00 | NUR ---
U/S GD PARACENTESIS PROCEDURE PERFORMED BY DR. JIMENEZ. PUNCTURE SITE RIGHT LOWER QUADRANT OF ABDOMEN AND PATIENT TOLERATED PROCEDURE WELL. TOTAL REMOVED 9.7 LITERS OF CLOUDY YELLOW FLUID. END OF PROCEDURE AT 0940. CATHETER REMOVED AND DRESSING APPLIED. NO BLEEDING NOTED. ALBUMIN 25% 50 GRAMS GIVEN DURING PROCEDURE [place] [facility] [place]. RIGHT FOREARM PIV DC'D, BANDAID APPLIED, DRESSING DRY AND INTACT. DISCHARGE INSTUCTIONS GIVEN TO PATIENT. PATIENT VERBALIZED UNDERSTANDING. PT DISCHARGED AMBULATORY, STABLE, AAO X3 WITH NO C/O PAIN @ 1000. SPECIMEN SENT TO LAB.
[2020-01-10 15:51] LABS: SPECIMENTYPE,BODY FLUID ASCITES
[2020-01-10 15:52] LABS: APPEARANCE BODY FLUID SLIGHTLY CLOUDY (CLEAR); BODY FLUID RBC 66 /cu. mm.; BODY FLUID WBC 55 /cu. mm.; COLOR,BODY FLUID YELLOW (LT YELLOW); TOTAL VOLUME,BODY FLUID 9700 mL
[2020-01-10 16:05] LABS: BF LYMPHOCYTE 18 %; BF MESOTHELIAL 68 %; BF MONOCYTE 2 %
== END | disposition home or self-care (01) ==
LOC: RAH 07:27
PROVIDERS: ATTEND Internal Medicine Hematology & Oncology
DX: K70.31 Alcoholic cirrhosis of liver with ascites (principal); E03.9 Hypothyroidism, unspecified; E78.5 Hyperlipidemia, unspecified; K21.9 Gastro-esophageal reflux disease without esophagitis; I12.9 Hypertensive chronic kidney disease with stage 1 through stage 4 chronic kidney disease, or unspecified chronic kidney disease; E11.22 Type 2 diabetes mellitus with diabetic chronic kidney disease; N18.3 Chronic kidney disease, stage 3 (moderate); M19.90 Unspecified osteoarthritis, unspecified site; Z98.890 Other specified postprocedural states; Z79.899 Other long term (current) drug therapy
CPT/HCPCS: 49083; 87071; 87205; 89051; A4215; P9046; 96365

== ENCOUNTER → 2020-01-17 | Outpatient (CLI) | payer MEDICARE ==
[~2020-01-17] VITALS: Ht 165.1 cm; Wt 96.2 kg
[2020-01-17 08:36] LABS: INR 1.08 (0.85-1.15); PARTIAL THROMBOPLASTIN TIME 31.1 SEC (26.3-35.5); PROTHROMBIN TIME 11.6 SEC (9.6-11.6)
--- NOTE | 2020-01-17 08:50 | NUR ---
U/S GD PARACENTESIS PROCEDURE PERFORMED BY DR. JIMENEZ. PUNCTURE SITE RIGHT LOWER QUADRANT OF ABDOMEN AND PATIENT TOLERATED PROCEDURE WELL. TOTAL REMOVED 10 LITERS OF CLOUDY YELLOW FLUID. END OF PROCEDURE AT 0940. CATHETER REMOVED AND DRESSING APPLIED. NO BLEEDING NOTED. ALBUMIN 25% 50 GRAMS GIVEN DURING PROCEDURE PER [facility] [place]BUMIN PROTOCOL. LEFT FOREARM PIV DC'D, BANDAID APPLIED, DRESSING DRY AND INTACT. DISCHARGE INSTRUCTIONS GIVEN TO PATIENT. PATIENT VERBALIZED UNDERSTANDING. PT DISCHARGED VIA W/C, STABLE, AAO X3 WITH NO C/O PAIN @ 1000. SPECIMEN SENT TO LAB.
[2020-01-17 15:22] LABS: APPEARANCE BODY FLUID SLIGHTLY CLOUDY (CLEAR); COLOR,BODY FLUID LT YELLOW (LT YELLOW); SPECIMENTYPE,BODY FLUID ASCITES; TOTAL VOLUME,BODY FLUID 10000 mL
[2020-01-17 15:23] LABS: BODY FLUID RBC 99 /cu. mm.; BODY FLUID WBC 65 /cu. mm.
[2020-01-17 16:01] LABS: BF LYMPHOCYTE 4 %; BF MESOTHELIAL 10 %
== END | disposition home or self-care (01) ==
LOC: RAH 07:35
PROVIDERS: ATTEND Internal Medicine Hematology & Oncology
DX: K70.31 Alcoholic cirrhosis of liver with ascites (principal); E03.9 Hypothyroidism, unspecified; K21.9 Gastro-esophageal reflux disease without esophagitis; E78.5 Hyperlipidemia, unspecified; M19.90 Unspecified osteoarthritis, unspecified site; I12.9 Hypertensive chronic kidney disease with stage 1 through stage 4 chronic kidney disease, or unspecified chronic kidney disease; E11.22 Type 2 diabetes mellitus with diabetic chronic kidney disease; N18.3 Chronic kidney disease, stage 3 (moderate); D50.9 Iron deficiency anemia, unspecified; Z83.3 Family history of diabetes mellitus; Z79.899 Other long term (current) drug therapy
CPT/HCPCS: 36415; 49083; 85610; 85730; 87071; 87205; 89051; A4215; P9046; 96365

== ENCOUNTER → 2020-01-24 | Outpatient (CLI) | payer MEDICARE ==
--- NOTE | 2020-01-24 09:19 | NUR ---
U/S GD PARACENTESIS PROCEDURE PERFORMED BY DR. Mesfin SOOD. PUNCTURE SITE RIGHT LOWER QUADRANT OF ABDOMEN AND PATIENT TOLERATED PROCEDURE WELL. TOTAL REMOVED 6.6 LITERS OF CLOUDY YELLOW FLUID. END OF PROCEDURE AT 0845. CATHETER REMOVED AND DRESSING APPLIED. NO BLEEDING NOTED. ALBUMIN 25% 50 GRAMS GIVEN DURING PROCEDURE PER [facility] [place] ALBUMIN PROTOCOL. RIGHT FOREARM PIV DC'D, BANDAID APPLIED, DRESSING DRY AND INTACT. DISCHARGE INSTRUCTIONS GIVEN TO PATIENT. PATIENT VERBALIZED UNDERSTANDING. PT DISCHARGED VIA W/C, STABLE, AAO X3 WITH NO C/O PAIN @ 0915. SPECIMEN SENT TO LAB.
[2020-01-24 13:16] LABS: APPEARANCE BODY FLUID CLEAR (CLEAR); COLOR,BODY FLUID YELLOW (LT YELLOW); SPECIMENTYPE,BODY FLUID ASCITES
[2020-01-24 13:17] LABS: BODY FLUID RBC 83 /cu. mm.; BODY FLUID WBC 94 /cu. mm.; TOTAL VOLUME,BODY FLUID 6600 mL
[2020-01-24 14:14] LABS: BF LYMPHOCYTE 3 %; BF MESOTHELIAL 87 %; BF MONOCYTE 2 %
== END | disposition home or self-care (01) ==
LOC: RAH 07:17
PROVIDERS: ATTEND Internal Medicine Hematology & Oncology
DX: K70.31 Alcoholic cirrhosis of liver with ascites (principal); I10 Essential (primary) hypertension; D50.9 Iron deficiency anemia, unspecified; E03.9 Hypothyroidism, unspecified; K21.9 Gastro-esophageal reflux disease without esophagitis; E78.5 Hyperlipidemia, unspecified; E11.9 Type 2 diabetes mellitus without complications; I25.10 Atherosclerotic heart disease of native coronary artery without angina pectoris; M19.90 Unspecified osteoarthritis, unspecified site; Z89.511 Acquired absence of right leg below knee
CPT/HCPCS: 49083; 87071; 87205; 89051; A4215; P9046

== ENCOUNTER → 2020-01-31 | Outpatient (CLI) | payer MEDICARE ==
[~2020-01-31] VITALS: Ht 165 cm; Wt 81.6 kg
--- NOTE | 2020-01-31 09:40 | NUR ---
U/S GD PARACENTESIS PROCEDURE PERFORMED BY DR. CARTER. PUNCTURE SITE RIGHT LOWER QUADRANT OF ABDOMEN AND PATIENT TOLERATED PROCEDURE WELL. TOTAL REMOVED 8.3 LITERS OF CLOUDY YELLOW FLUID. END OF PROCEDURE AT 0925. CATHETER REMOVED AND DRESSING APPLIED. NO BLEEDING NOTED. ALBUMIN 25% 50 GRAMS 200 ML GIVEN DURING PROCEDURE PER [facility] [place]BUMIN PROTOCOL. LEFT FOREARM PIV DC'D, BANDAID APPLIED, DRESSING DRY AND INTACT. DISCHARGE INSTRUCTIONS GIVEN TO PATIENT. PATIENT VERBALIZED UNDERSTANDING. PT DISCHARGED VIA W/C, STABLE, AAO X3 WITH NO C/O PAIN @ 0940. SPECIMEN SENT TO LAB.
[2020-01-31 12:51] LABS: APPEARANCE BODY FLUID CLEAR (CLEAR); COLOR,BODY FLUID YELLOW (LT YELLOW); SPECIMENTYPE,BODY FLUID ASCITES
[2020-01-31 12:52] LABS: TOTAL VOLUME,BODY FLUID 8300 mL
[2020-01-31 12:53] LABS: BODY FLUID RBC 49 /cu. mm.; BODY FLUID WBC 81 /cu. mm.
[2020-01-31 13:07] LABS: BF LYMPHOCYTE 17 %; BF MESOTHELIAL 75 %
== END | disposition home or self-care (01) ==
LOC: RAH 07:13
PROVIDERS: ATTEND Internal Medicine Hematology & Oncology
DX: K70.31 Alcoholic cirrhosis of liver with ascites (principal); I12.9 Hypertensive chronic kidney disease with stage 1 through stage 4 chronic kidney disease, or unspecified chronic kidney disease; E11.22 Type 2 diabetes mellitus with diabetic chronic kidney disease; N18.3 Chronic kidney disease, stage 3 (moderate); I25.10 Atherosclerotic heart disease of native coronary artery without angina pectoris; E03.9 Hypothyroidism, unspecified; K21.9 Gastro-esophageal reflux disease without esophagitis; E78.5 Hyperlipidemia, unspecified; M19.90 Unspecified osteoarthritis, unspecified site; Z79.899 Other long term (current) drug therapy; Z98.890 Other specified postprocedural states; Z82.49 Family history of ischemic heart disease and other diseases of the circulatory system; Z83.3 Family history of diabetes mellitus
CPT/HCPCS: 49083; 87071; 87205; 89051; 96365; A4215; P9046

== ENCOUNTER → 2020-02-07 | Outpatient (CLI) | payer MEDICARE ==
--- NOTE | 2020-02-07 09:40 | NUR ---
U/S GD PARACENTESIS PROCEDURE PERFORMED BY DR. OLIVER. PUNCTURE SITE RIGHT LOWER QUADRANT OF ABDOMEN AND PATIENT TOLERATED PROCEDURE WELL. TOTAL REMOVED 9.3 LITERS OF CLOUDY YELLOW FLUID. END OF PROCEDURE AT 0930 CATHETER REMOVED AND DRESSING APPLIED. NO BLEEDING NOTED. ALBUMIN 25% 50 GRAMS GIVEN DURING PROCEDURE [place] [facility] [place]. PIV DC'D, BANDAID APPLIED, DRESSING DRY AND INTACT. DISCHARGE INSTUCTIONS GIVEN TO PATIENT. PATIENT VERBALIZED UNDERSTANDING. PT DISCHARGED VIA W/C, STABLE, AAO X3 WITH NO C/O PAIN. SPECIMEN SENT TO LAB.
[2020-02-07] MEDS: ALBUMIN (HUMAN) 25% 200 ML IV SCH (11:28)
[2020-02-07 13:05] LABS: APPEARANCE BODY FLUID CLEAR (CLEAR); BODY FLUID RBC 208 /cu. mm.; BODY FLUID WBC 89 /cu. mm.; COLOR,BODY FLUID YELLOW (LT YELLOW); SPECIMENTYPE,BODY FLUID ASCITES; TOTAL VOLUME,BODY FLUID 9300 mL
[2020-02-07 13:07] LABS: BF LYMPHOCYTE 6 %; BF MESOTHELIAL 77 %; BF MONOCYTE 11 %
== END | disposition home or self-care (01) ==
LOC: RAH 07:08
PROVIDERS: ATTEND Internal Medicine Hematology & Oncology
DX: K70.31 Alcoholic cirrhosis of liver with ascites (principal); I10 Essential (primary) hypertension; E03.9 Hypothyroidism, unspecified; K21.9 Gastro-esophageal reflux disease without esophagitis; M19.90 Unspecified osteoarthritis, unspecified site; E11.9 Type 2 diabetes mellitus without complications; I25.10 Atherosclerotic heart disease of native coronary artery without angina pectoris; Z89.511 Acquired absence of right leg below knee; Z79.899 Other long term (current) drug therapy; Z98.890 Other specified postprocedural states
CPT/HCPCS: 49083; 87071; 87205; 89051; 96365; A4215; P9046

== ENCOUNTER → 2020-02-14 | Outpatient (CLI) | payer MEDICARE ==
[2020-02-14 08:45] LABS: INR 1.04 (0.85-1.15); PARTIAL THROMBOPLASTIN TIME 28.5 SEC (26.3-35.5); PROTHROMBIN TIME 11.2 SEC (9.6-11.6)
[2020-02-14 13:04] LABS: APPEARANCE BODY FLUID CLEAR (CLEAR); BODY FLUID WBC 31 /cu. mm.; COLOR,BODY FLUID YELLOW (LT YELLOW); SPECIMENTYPE,BODY FLUID ASCITES; TOTAL VOLUME,BODY FLUID 8000 mL
[2020-02-14 13:05] LABS: BODY FLUID RBC 95 /cu. mm.
[2020-02-14 13:12] LABS: BF LYMPHOCYTE 26 %; BF MESOTHELIAL 64 %
== END | disposition home or self-care (01) ==
LOC: RAH 07:18
PROVIDERS: ATTEND Internal Medicine Hematology & Oncology
DX: K70.31 Alcoholic cirrhosis of liver with ascites (principal); E11.22 Type 2 diabetes mellitus with diabetic chronic kidney disease; I12.9 Hypertensive chronic kidney disease with stage 1 through stage 4 chronic kidney disease, or unspecified chronic kidney disease; N18.3 Chronic kidney disease, stage 3 (moderate); E03.9 Hypothyroidism, unspecified; D50.9 Iron deficiency anemia, unspecified; K21.9 Gastro-esophageal reflux disease without esophagitis; E78.5 Hyperlipidemia, unspecified; Z89.511 Acquired absence of right leg below knee; Z79.899 Other long term (current) drug therapy; Z98.890 Other specified postprocedural states
CPT/HCPCS: 36415; 49083; 85610; 85730; 87071; 87205; 89051; 96365; A4215; P9046

== ENCOUNTER → 2020-02-21 | Outpatient (CLI) | payer MEDICARE ==
[~2020-02-21] MED LIST changes: +ALBUMIN (HUMAN) 25% 200 ML IV ONE; -ALBUMIN (HUMAN) 25% 200 ML IV SCH
--- NOTE | 2020-02-21 08:45 | NUR ---
U/S GD PARACENTESIS PROCEDURE PERFORMED BY DR. RUSSELL. PUNCTURE SITE RIGHT LOWER QUADRANT OF ABDOMEN AND PATIENT TOLERATED PROCEDURE WELL. TOTAL REMOVED 8.5 LITERS OF CLOUDY YELLOW FLUID. END OF PROCEDURE AT 0920. CATHETER REMOVED AND DRESSING APPLIED. NO BLEEDING NOTED. ALBUMIN 25% 50 GRAMS GIVEN DURING PROCEDURE [place] [facility] [place]. RIGHT ANTECUBITAL PIV DC'D, BANDAID APPLIED, DRESSING DRY AND INTACT. DISCHARGE INSTRUCTIONS GIVEN TO PATIENT. PATIENT VERBALIZED UNDERSTANDING. PT DISCHARGED VIA W/C, STABLE, AAO X3 WITH NO C/O PAIN. SPECIMEN SENT TO LAB.
[2020-02-21 13:34] LABS: APPEARANCE BODY FLUID CLEAR (CLEAR); COLOR,BODY FLUID YELLOW (LT YELLOW); SPECIMENTYPE,BODY FLUID ASCITES; TOTAL VOLUME,BODY FLUID 8500 mL
[2020-02-21 13:35] LABS: BODY FLUID RBC 185 /cu. mm.; BODY FLUID WBC 205 /cu. mm.
[2020-02-21 14:08] LABS: BF LYMPHOCYTE 7 %; BF MESOTHELIAL 32 %
== END ==
LOC: RAH 07:15
PROVIDERS: ATTEND Internal Medicine Hematology & Oncology
DX: K70.31 Alcoholic cirrhosis of liver with ascites (principal); D50.9 Iron deficiency anemia, unspecified; E03.9 Hypothyroidism, unspecified; E78.5 Hyperlipidemia, unspecified; K21.9 Gastro-esophageal reflux disease without esophagitis; M19.90 Unspecified osteoarthritis, unspecified site; I25.10 Atherosclerotic heart disease of native coronary artery without angina pectoris; I12.0 Hypertensive chronic kidney disease with stage 5 chronic kidney disease or end stage renal disease; E11.22 Type 2 diabetes mellitus with diabetic chronic kidney disease; N18.6 End stage renal disease; E11.51 Type 2 diabetes mellitus with diabetic peripheral angiopathy without gangrene; Z79.899 Other long term (current) drug therapy
CPT/HCPCS: 49083; 87071; 87205; 89051; A4215; P9046; 96365

== ENCOUNTER → 2020-02-28 | Outpatient (CLI) | payer MEDICARE ==
[~2020-02-28] MED LIST changes: -ALBUMIN (HUMAN) 25% 200 ML IV ONE; +ALBUMIN (HUMAN) 25% 200 ML IV SCH
--- NOTE | 2020-02-28 08:45 | NUR ---
U/S GD PARACENTESIS PROCEDURE PERFORMED BY DR. MATA PUNCTURE SITE RIGHT LOWER QUADRANT OF ABDOMEN AND PATIENT TOLERATED PROCEDURE WELL. TOTAL REMOVED 8.1 LITERS OF CLOUDY YELLOW FLUID. END OF PROCEDURE AT 0910. CATHETER REMOVED AND DRESSING APPLIED. NO BLEEDING NOTED. ALBUMIN 25% 50 GRAMS GIVEN DURING PROCEDURE PER [facility] [place]BUMIN PROTOCOL. PIV DC'D, BANDAID APPLIED, DRESSING DRY AND INTACT. DISCHARGE INSTRUCTIONS GIVEN TO PATIENT. PATIENT VERBALIZED UNDERSTANDING. PT DISCHARGED VIA W/C, STABLE, AAO X3 WITH NO C/O PAIN @ 0930. SPECIMEN SENT TO LAB.
[2020-02-28 13:50] LABS: APPEARANCE BODY FLUID CLEAR (CLEAR); COLOR,BODY FLUID YELLOW (LT YELLOW); SPECIMENTYPE,BODY FLUID ASCITES; TOTAL VOLUME,BODY FLUID 8100 mL
[2020-02-28 13:51] LABS: BODY FLUID RBC 154 /cu. mm.; BODY FLUID WBC 128 /cu. mm.
[2020-02-28 14:04] LABS: BF LYMPHOCYTE 7 %; BF MESOTHELIAL 60 %; BF MONOCYTE 13 %
== END | disposition home or self-care (01) ==
LOC: RAH 07:13
PROVIDERS: ATTEND Internal Medicine Hematology & Oncology
DX: K70.31 Alcoholic cirrhosis of liver with ascites (principal); N18.3 Chronic kidney disease, stage 3 (moderate); D63.1 Anemia in chronic kidney disease; E03.9 Hypothyroidism, unspecified; I73.9 Peripheral vascular disease, unspecified; Z79.899 Other long term (current) drug therapy
CPT/HCPCS: 49083; 87071; 87077; 87186; 87205; 89051; A4215; P9046; 96365